=== PATIENT | male | born 1965 | race Caucasian/White ===

== ENCOUNTER 2017-03-19 05:19 | Inpatient (IN) | payer OTHER ==
--- NOTE | 2017-03-14 18:44 | HP ---
Date/Time of Note Date/Time of Note DATE: 03/14/17 TIME: 18:36 Assessment/Plan VTE Prophylaxis VTE Prophylaxis Intervention: SCD's Assessment/Plan Chief Complaint/Hosp Course Preoperative medical consultation prior to elective lumbar spinal surgery for spinal stenosis. At this time I find Mr. Resendiz to be acceptable surgical candidate and concur with your plans to proceed with surgery. He is at average surgical risk as compared to his age-matched peers. Using the modified Barbosa's criteria he is a intermediate risk. He should do well using all standard and routine anesthesia precautions. I concur with proceeding. Respectfully yours Problems: (1) Lumbar spinal stenosis Status: Chronic Comment: As above cleared to proceed with surgery HPI/ROS Admit Date/Time Admit Date/Time March 19, 2017 Hx of Present Illness 51-year-old gentleman being brought in electively by Dr. Katharina Burnham for surgery specifically lumbar decompression and possible discectomy L2 through S1 due to a diagnosis of L2 through S1 lumbar spinal stenosis. She has failed all conservative attempts at treatment. ROS Constitutional: no complaints Eyes: no complaints ENT: other (Left ear tinnitus otherwise negative) Respiratory: no complaints Cardiovascular: no complaints (Can climb 4 flights of stairs) Gastrointestinal: no complaints Genitourinary: no complaints Musculoskeletal: back pain, other (With sciatica) Skin: no complaints Neurologic: other (Lower extremity sciatica) Endocrine: no complaints Lymphatic: no complaints Psychological: nl mood/affect, no complaints Immunologic: no complaints PMH/Family/Social Past Medical History Lumbar spinal stenosis; usual childhood diseases; Medications: [place] as needed Past Surgical History Past Surgical Hx: no surgical history Family History Significant Family History: heart disease, diabetes, hypertension, other ( Stroke negative for anesthesia reactions) Social History [facility]. Two-year college degree without experience. Professional brown. He is single lives alone except for his pet dog he is very active Alcohol Use: heavy Smoking Status: Current every day smoker Drug Use: none Exam/Review of Systems Vital Signs Vitals Height 5 feet 10 inches; weight 218 pounds; blood pressure 134/70; pulse 64; temperature 97.9; respiratory rate 16 Exam Exam Labs have been sent separately. Random blood sugar 138 otherwise chemistry panel normal. White count 6.4 hemoglobin 15.3 hematocrit 47.1 platelet count 170 urinalysis without note except for trace proteinuria pro time 12.6 with an INR of 1.15 PTT is 26 seconds EKG is sinus rhythm rhythm at 58 with intervals 0.1 6.10.40 and axis of -15 normal morphology chest x-ray unremarkable Constitutional: alert, oriented, well developed Psych: nl mood/affect, no complaints Head: atraumatic, normocephalic Eyes: EOMI, nl conjunctiva, nl lids, nl sclera ENMT: mucosa pink and moist, nl external ears & nose, nl lips & teeth, nl nasal mucosa & septum Neck: non-tender, supple Respiratory: clear to auscultation, normal air movement Cardiovascular: nl pulses, regular rate and rhythm Gastrointestinal: nl liver, spleen, non-tender, soft Musculoskeletal: nl extremities to inspection, nl gait and stance (Antalgic gait) Extremities: normal pulses Neurological: BULB FILLER II-XII intact, nl mental status, nl speech Skin: nl turgor, rash or lesions Lymph: nl lymph nodes Copies To: CC: KENENDI HANKS MD, JOSHUA A MD Mar 14, 2017 18:44
[2017-03-18 09:57] VITALS: BMI 29.2
[2017-03-19] VITALS (27 sets, daily range): BP systolic 111–151; BP diastolic 58–90; PULSE 61–88; RESP 16–20; Ht 180.3 cm; Wt 97.5 kg
[~2017-03-19] VITALS: Ht 180.3 cm; Wt 97.5 kg
[2017-03-19] MEDS ORDERED: SURGIFOAM POWDER 1 GM KIT ONE ×2 (06:54→09:41)
[2017-03-19] MEDS ORDERED: HEPARIN 1000 UNITS/ML 10 ML INJ ONE (06:55)
[2017-03-19] MEDS ORDERED: CEFAZOLIN 1 GM INJ ONE ×2 (06:55→07:06)
[2017-03-19] MEDS ORDERED: BUPIVACAINE 0.5%/EPI (SDV) 10 ML INJ ONE (06:55)
[2017-03-19] MEDS ORDERED: THROMBIN 5000 UNIT VIAL ONE (06:55)
[2017-03-19] MEDS ORDERED: CA CHLORIDE 10% 10 ML SYRINGE ONE (06:55)
--- NOTE | 2017-03-19 06:57 | HPN ---
Date/Time of Note Date/Time of Note DATE: 03/19/17 TIME: 06:57 Interval H&P Admission Note Pt. seen H&P reviewed: No system changes BENJAMIN CEDILLO PA-C Mar 19, 2017 06:57
[2017-03-19] MEDS ORDERED: LACTATED RINGER'S 1,000 ML IV* ONE (07:00)
[2017-03-19] MEDS ORDERED: CEFAZOLIN 2 GM/50 ML (PMX) 50 ML IVPB SCH (07:00)
[2017-03-19] MEDS ORDERED: NEOSTIGMINE 3 MG/3 ML SYRINGE ONE (07:06)
[2017-03-19] MEDS ORDERED: PROPOFOL 20 ML ONE (07:06)
[2017-03-19] MEDS ORDERED: GLYCOPYRROLATE 0.4 MG INJ ONE (07:06)
[2017-03-19] MEDS ORDERED: MIDAZOLAM 1 MG/ML 2 ML INJ ONE (07:06)
[2017-03-19] MEDS ORDERED: FENTAnyl 50 MCG/ML VIAL ONE ×2 (07:06→10:26)
[2017-03-19] MEDS ORDERED: ROCURONIUM 50 MG INJ ONE (07:06)
[2017-03-19] MEDS ORDERED: DEXAMETHASONE 4 MG/ML 1 ML INJ ONE (07:07)
[2017-03-19] MEDS ORDERED: ONDANSETRON 4 MG INJ ONE (07:07)
[2017-03-19] MEDS ORDERED: hydrALAzine 20 MG INJ ONE (08:10)
[2017-03-19] MEDS ORDERED: ALBUTEROL 0.083% (NEB) 2.5 MG/3 ML AMP HHN PRN ×2 (08:30)
[2017-03-19] MEDS ORDERED: MIDAZOLAM 1 MG/ML 2 ML INJ IV PRN ×2 (08:30)
[2017-03-19] MEDS ORDERED: OXYCODONE/ACETAMINOPHEN (5/325) TAB PO PRN ×4 (08:30)
[2017-03-19] MEDS ORDERED: LABETALOL HCL 20MG INJ IV PRN ×2 (08:30)
[2017-03-19] MEDS ORDERED: ONDANSETRON 4 MG INJ IV PRN ×3 (08:30→09:00)
[2017-03-19] MEDS ORDERED: DIPHENHYDRAMINE 50 MG INJ IV PRN ×3 (08:30→09:00)
[2017-03-19] MEDS ORDERED: hydrALAzine 20 MG INJ IV PRN ×2 (08:30)
[2017-03-19] MEDS ORDERED: FENTAnyl 50 MCG/ML VIAL IV PRN ×6 (08:30)
[2017-03-19] MEDS ORDERED: TRIMETHOBENZAMIDE 100 MG/ML VIAL IM PRN ×2 (08:30)
[2017-03-19] MEDS ORDERED: IPRATROPIUM (NEB) 0.5 MG/2.5 ML AMP HHN PRN ×2 (08:30)
[2017-03-19] MEDS ORDERED: EPHEDrine SULFATE 50 MG/5 ML SYG IV PRN ×2 (08:30)
[2017-03-19] MEDS ORDERED: HYDROmorphONE (0.2 MG/ML) 10ML SYG IV PRN ×6 (08:30)
[2017-03-19] MEDS ORDERED: MEPERIDINE 25 MG INJ IV PRN ×2 (08:30)
[2017-03-19] MEDS ORDERED: BUPIVACAINE 0.5%/EPI (SDV) 10 ML INJ INJ ONE (08:42)
[2017-03-19] MEDS ORDERED: CEFAZOLIN 1 GM INJ ZFS ONE (08:43)
[2017-03-19] MEDS ORDERED: THROMBIN 5000 UNIT VIAL TOP ONE (08:44)
[2017-03-19] MEDS ORDERED: CA CHLORIDE (GM) 10% 10 ML INJ INJ ONE (08:44)
[2017-03-19] MEDS ORDERED: SURGIFOAM POWDER 1 GM KIT MM ONE (08:45)
[2017-03-19] MEDS ORDERED: HEPARIN 1000 UNITS/ML 10 ML INJ IRR ONE (08:45)
[2017-03-19] MEDS ORDERED: NALOXONE (0.4 MG/ML) INJ IV PRN (09:00)
[2017-03-19] MEDS ORDERED: HYDROmorphONE 1 MG/ML SYG IV PRN (09:00)
[2017-03-19] MEDS ORDERED: ZOLPIDEM 5 MG TAB PO PRN (09:00)
[2017-03-19] MEDS: D5W-0.45 NACL + KCL 20 MEQ 1,000 ML IV SCH ×2 (09:00→15:51)
[2017-03-19] MEDS ORDERED: AL HYDROX/MG HYDROX/SIMETH 30 ML CUP PO PRN (10:00)
[2017-03-19] MEDS ORDERED: ACETAMINOPHEN 325 MG TAB PO PRN (10:00)
[2017-03-19] MEDS ORDERED: BISACODYL 10 MG SUPP PR PRN (10:00)
[2017-03-19] MEDS ORDERED: BUPIVACAINE 0.25% (MPF) 10 ML 10 ML VIAL ONE (10:26)
[2017-03-19] MEDS ORDERED: SUGAMMADEX SODIUM 200 MG/2 ML VIAL IV ONE (10:47)
[2017-03-19] MEDS ORDERED: CEFAZOLIN 1 GM/50 ML (PMX) 50 ML IVPB SCH (11:00)
--- NOTE | 2017-03-19 11:01 | SIPON ---
Date/Time of Note Date/Time of Note DATE: 03/19/17 TIME: 10:59 Operative Report Preoperative Diagnosis Spinal stenosis Postoperative Diagnosis Spinal stenosis Operation/Procedure Performed Lumbar decompression L2-S1 Surgeon see signature line field technical assistant Cortney so Anesthesia: general Estimated blood loss: 250 - 300 ml's Transfusion Required none Specimen Spinous process Grafts/Implants none Complications none KENNEDI HANKS MD Mar 19, 2017 11:01
[2017-03-19] MEDS: HYDROmorphONE 0.2 MG/ML PCA IV SCH (11:12)
--- NOTE | 2017-03-19 12:52 | RADRPT ---
PROCEDURE: Intraoperative fluoroscopy. CLINICAL INDICATION: Intraoperative fluoroscopy. COMPARISON: None relevant listed. TECHNIQUE: Intraoperative fluoroscopy of the lumbar spine was performed. Fluoroscopy time: 12.2 seconds # Series / Images: 6 FINDINGS: Intraoperative fluoroscopy was provided for surgical planning and support purposes. Expected changes related to L2-S1 posterior decompression. Alignment is anatomic. Mild L4-L5 and L5-S1 disc space na rrowing. IMPRESSION: 1. Intraoperative fluoroscopy was provided for surgical planning and support purposes. 2. Mild degenerative changes of the lumbar spine. RPTAT: [facility] Physician Dulce Date Time Electronically viewed and signed by Physician Dulce on 03/19/2017 12:51 LG/
--- NOTE | 2017-03-19 13:46 | PN ---
Date/Time of Note Date/Time of Note DATE: 03/19/17 TIME: 13:44 Assessment/Plan VTE Prophylaxis VTE Prophylaxis Intervention: SCD's Lines/Catheters IV Catheter Type (from Nrsg): Peripheral IV Assessment/Plan Chief Complaint/Hosp Course Preoperative medical consultation prior to elective lumbar spinal surgery for spinal stenosis. At this time I find Mr. Resendiz to be acceptable surgical candidate and concur with your plans to proceed with surgery. He is at average surgical risk as compared to his age-matched peers. Using the modified Barbosa's criteria he is a intermediate risk. He should do well using all standard and routine anesthesia precautions. I concur with proceeding. Respectfully yours Problems: (1) Status post lumbar laminectomy Onset Date: ~ 03/19/2017 Status: Acute Comment: Patient is immediately postop. He appears to be doing well. He is in fact moving his extremities right greater than left and is still immediately post anesthesia. We will continue to observe him and start him on appropriate physical therapy and rehabilitative therapy (2) Lumbar spinal stenosis Status: Chronic Comment: He is properly expect reasonable outcome although will watch carefully. Subjective 24 Hr Interval Summary Free Text/Dictation Resting in bed awake and alert postoperatively. Feels is difficult to take a deep breath but has no shortness of breath Constitutional: no complaints Eyes: no complaints ENT: no complaints Respiratory: no complaints Cardiovascular: no complaints Gastrointestinal: no complaints Genitourinary: no complaints Musculoskeletal: back pain (Normal back pain) Exam/Review of Systems Vital Signs Vitals Vital Signs Date Time Temp Pulse Resp B/P Pulse Ox O2 Delivery O2 Flow Rate FiO2 03/19/17 12:10 82 17 146/90 97 Nasal Cannula 2.0 03/19/17 11:10 98.0 Exam Constitutional: alert, oriented Respiratory: clear to auscultation, normal air movement Cardiovascular: nl pulses, regular rate and rhythm Gastrointestinal: nl liver, spleen, non-tender, soft Medications Medications Current Medications Potassium Chloride/Dextrose/ Sod Cl (D5-1/2ns + KCl 20 Meq) 1,000 ml @ 100 mls/ hr Q10H IV ; Start 03/19/17 at 09:00 Acetaminophen/ Hydrocodone Bitart ([place] ()) 1 tab Q4H PRN PO PAIN LEVEL 1-5; Start 03/21/17 at 10:00 Acetaminophen/ Hydrocodone Bitart ([place] (10/325)) 2 tab Q4H PRN PO PAIN LEVEL 6-10; Start 03/21/17 at 10:00 Hydromorphone HCl 0.2 mg 0.2 mg Q1H PRN IV BREAKTHROUGH PAIN; Start 03/19/17 at 09:00 Cefazolin Sodium (Ancef 1 Gm/50 ml (Pmx)) 50 ml @ 100 mls/hr Q8H IVPB ; Start 03/19/17 at 11:00; Stop 03/20/17 at 03:29 Ondansetron HCl (Zofran Inj) 4 mg Q6H PRN IV NAUSEA AND/OR VOMITING; Start at 09:00 Bisacodyl (Dulcolax Supp) 10 mg DAILY PRN MD CONSTIPATION; Start 03/19/17 at 10 :00 Docusate Sodium (Colace) 100 mg BID PO ; Start 03/19/17 at 21:00 Al Hydrox/Mg Hydrox/Simethicone (Mag-Al Plus) 15 ml Q6H PRN PO CONSTIPATION/ DYSPEPSIA; Start 03/19/17 at 10:00 Acetaminophen (Tylenol Tab) 650 mg Q4H PRN PO GANT OR TEMP GREATER THAN 101.3F; Start 03/19/17 at 10:00 Cyclobenzaprine HCl (Flexeril) 10 mg TID PRN PO MUSCLE SPASMS; Start 03/19/17 at 09:00 Phenol (Cepastat Lozenge) 1 lozenge PRN PRN MT SORE THROAT; Start 03/19/17 at 09:00 Diphenhydramine HCl (Benadryl) 25 mg Q6H PRN IV ITCHING; Start 03/19/17 at 09: 00 Naloxone HCl (Narcan) 0.2 mg Q2M PRN IV RR 8 BREATHS/MIN OR LESS; Start at 09:00 Hydromorphone HCl (Dilaudid CUT FILER) CUT FILER to be started in PACU Q4PCA IV Last administered on 03/19/17t 11:12; Admin Dose 6 MG; Start 03/19/17 at 09:00; Status Future Hold Miscellaneous Information 1. Hold CUT FILER at 1,000... CUT FILER IV ; Start 03/19/17 at 07: 00 Acetaminophen/ Hydrocodone Bitart ([place] ()) 2 tab ONCE@0930 PO ; Start at 09:30; Stop 03/21/17 at 12:00 CECI PARRISH MD Mar 19, 2017 13:46
[2017-03-19] MEDS: CEFAZOLIN 1 GM/50 ML (PMX) 50 ML IVPB SCH ×2 (15:50→20:32)
[2017-03-19] MEDS: DOCUSATE SODIUM 100 MG CAP PO SCH (20:32)
[2017-03-20] MEDS: HYDROmorphONE 0.2 MG/ML PCA IV SCH ×2 (00:43→12:43)
[2017-03-20 04:25] VITALS: BP 122/76; PULSE 63; RESP 18
[2017-03-20] MEDS: CEPASTAT LOZENGE MT PRN ×2 (04:48→19:58)
[2017-03-20] MEDS: D5W-0.45 NACL + KCL 20 MEQ 1,000 ML IV SCH ×2 (04:48→11:23)
[2017-03-20] MEDS: CEFAZOLIN 1 GM/50 ML (PMX) 50 ML IVPB SCH (04:49)
[2017-03-20 05:47] LABS: BASOPHILS % 0.2 % (0.0-2.0); EOSINOPHILS # 0.1 10^3/ul (0.0-0.5); EOSINOPHILS % 0.4 % (0.0-7.0); HEMATOCRIT 35.1 % (42.0-52.0); HEMOGLOBIN 12.2 g/dl (14.0-18.0); LYMPHOCYTES # 1.5 10^3/ul (0.8-2.9); LYMPHOCYTES % 11.7 % (15.0-51.0); MEAN CORPUSCULAR HGB CONC 34.8 g/dl (32.0-37.0); MEAN CORPUSCULAR VOLUME 92.1 fl (82.0-101.0); MEAN PLATELET VOLUME 10.5 fl (7.4-10.4); MONOCYTE # 0.8 10^3/ul (0.3-0.9); MONOCYTES % 6.2 % (0.0-11.0); NEUTROPHIL # 10.1 10^3/ul (1.6-7.5); NEUTROPHILS % 80.5 % (39.0-77.0); PLATELET COUNT 156 10^3/UL (140-415); RED BLOOD COUNT 3.81 10^6/ul (4.70-6.10); RED CELL DISTRIBUTION WIDTH 12.2 % (11.5-14.5); WHITE BLOOD COUNT 12.5 10^3/ul (4.8-10.8)
[2017-03-20 06:21] LABS: CALCIUM 8.3 mg/dl (8.4-10.2); CREATININE 0.96 mg/dl (0.61-1.24); POTASSIUM 3.7 mmol/L (3.5-5.1)
[2017-03-20 07:43] VITALS: BP 135/77; RESP 18
--- NOTE | 2017-03-20 07:43 | OPR ---
DATE OF OPERATION: 03/19/2017 PREOPERATIVE DIAGNOSES: 1. Degenerative scoliosis. 2. Radiculopathy. 3. L2-3, L3-4, L4-5, L5-S1 stenosis. POSTOPERATIVE DIAGNOSES: 1. Degenerative scoliosis. 2. Radiculopathy. 3. L2-3, L3-4, L4-5, L5-S1 stenosis. OPERATION PERFORMED: 1. Central decompressive laminectomy at L2-3, L3-4, L4-5 and L5- S1 with decompression of L2, L3, L4, L5, S1 nerve roots bilaterally. 2. Use of C-arm flash with interpretation without radiologist present. 3. Intraoperative neuro monitoring (3 hours). SURGEON: Pacheco Hay MD CLOTH PACKER: Cortney Goodwin PA-C NEED FOR RESPIRATORY THERAPIST: assistant county attorney was required to retract neurovascular elements. ESTIMATED BLOOD LOSS: 300 mL. DRAINS: One. SPECIMENS: Spinous processes. COMPLICATIONS: None. ANESTHESIOLOGIST: Kirit Aguayo MD ANESTHESIA: General. INDICATION FOR PROCEDURE: This is a 51-year-old gentleman with lumbar radiculopathy and a footdrop in the setting of degenerative scoliosis and stenosis. He has failed nonoperative measures. Therefore, I recommended proceeding with the above mentioned surgery. Preoperatively, discussed risks, benefits, alternatives. He understood and wished to proceed. DESCRIPTION OF PROCEDURE IN DETAIL: The patient was identified in the holding area, given Ancef antibiotics in the operating room where he was successfully placed under general anesthesia. Neuro monitors were placed and sequential compressive devices were applied. Silva catheter was introduced. Neuro monitor was utilized during the procedure for 3 hours to include SSEP, MEP, and EMG. This was performed by [email or web address]. Start time was 8 a.m. Closure time was 11 a.m. The patient was placed in the prone position on [place] frame. All bony prominences were padded. The back was then prepped and draped in usual sterile fashion. The incision site was injected with Marcaine and epinephrine. Incision was then made from L2 to the sacrum. Incision was taken down to the dorsal fascia which was incised with Bovie cautery. I then subperiosteally dissected the longus colli musculature. Kerrisons were then placed in the lamina. Repeat lateral film was obtained to confirm the correct levels. Once this was confirmed, I performed a central decompressive laminectomy at L2-3, L3-4, L4-5, L5-S1. I decompressed the central canal. I decompressed the lateral recess. I decompressed the L2, L3, L4, L5 and S1 nerve roots bilaterally through the intraspinal course and out to the foramen to alleviate the stenosis. Once this was done, the nerve signals significantly improved as outlined below. Once this was done, I irrigated the wound. Hemostasis achieved with bipolar cautery and Surgifoam. Epidural catheter was passed through which I injected 100 mcg of fentanyl, mixed with 2 mL of Marcaine 0.25 percent and the catheter was pulled. Platelet poor plasma mixed with thrombin was injected over the dura for hemostatic purposes. I then placed a subfascial drain and closed the fascia with a 1 Stratafix suture. I then closed subcutaneous tissue with 2-0 Vicryl stitch. 4-0 Monocryl closure was then performed. Dermabond and sterile dressing was then applied. The patient was then awakened from anesthesia and taken to recovery in stable condition. Lap, sponge, and instrument counts correct x2. There were no apparent complications during the procedure. The patient admitted to [facility] for routine postoperative care to include pain control, NV checks, antibiotics, and physical therapy. OPERATIVE FINDINGS AT SURGERY: The patient had severe stenosis due to degenerative scoliosis and facet and ligamentum hypertrophy. At the start of the case, L2 amplitude down 20 percent bilaterally, L3 amplitude down 50 percent bilaterally, L4 amplitude down 40 percent on the left and 60 percent on the right, L5 amplitude down 80 percent on the left and 70 percent on the right, and S1 amplitude down 40 percent bilaterally. L2, L3, L4 nerve roots improved. L5 signal on the left was down 40 percent and right side returned to normal. S1 signal bilaterally was 10 percent down at the end of the case. Dictated By: Pacheco Hay MD /saniya/chace /Document#: [id number] PACHECO
[2017-03-20] MEDS: DOCUSATE SODIUM 100 MG CAP PO SCH ×2 (08:58→19:58)
[2017-03-20] MEDS: CYCLOBENZAPRINE 10 MG TAB PO PRN (11:20)
--- NOTE | 2017-03-20 12:03 | PN ---
Date/Time of Note Date/Time of Note DATE: 03/20/17 TIME: 12:01 Assessment/Plan Lines/Catheters IV Catheter Type (from Nrsg): Peripheral IV Silva in Place (from Nrsg): Yes Assessment/Plan Assessment/Plan doing well pod 1 right leg partial foot drop slightly improved from preop continue post op care Subjective 24 Hr Interval Summary improved leg pain Exam/Review of Systems Vital Signs Vitals Vital Signs Date Time Temp Pulse Resp B/P Pulse Ox O2 Delivery O2 Flow Rate FiO2 03/20/17 11:24 20 03/20/17 07:43 97.4 66 135/77 100 03/20/17 04:25 Nasal Cannula 2.0 Intake and Output 03/19/17 03/19/17 03/20/17 15:00 23:00 07:00 Intake Total 2800 ml 740 ml 1450 ml Output Total 860 ml 470 ml 2000 ml Balance 1940 ml 270 ml -550 ml Exam Free Text/Dictation right leg partial foot drop Results Result Diagram: 03/20/17 0453 03/20/17 0453 KENNEDI HANKS MD Mar 20, 2017 12:03
[2017-03-20 14:09] VITALS: BP 132/65; RESP 18
--- NOTE | 2017-03-20 15:14 | PN ---
Date/Time of Note Date/Time of Note DATE: 03/20/17 TIME: 15:12 Assessment/Plan VTE Prophylaxis VTE Prophylaxis Intervention: SCD's Lines/Catheters IV Catheter Type (from Nrs): Peripheral IV Urinary Cath still in place: Yes Reason Cath still needed: urinary retention Assessment/Plan Chief Complaint/Hosp Course Preoperative medical consultation prior to elective lumbar spinal surgery for spinal stenosis. At this time I find Mr. Resendiz to be acceptable surgical candidate and concur with your plans to proceed with surgery. He is at average surgical risk as compared to his age-matched peers. Using the modified Barbosa's criteria he is a intermediate risk. He should do well using all standard and routine anesthesia precautions. I concur with proceeding. Respectfully yours Problems: (1) Status post lumbar laminectomy Onset Date: ~ 03/19/2017 Status: Acute Comment: He is progressing with physical therapy. He has developed an intractable hiccups which may be a sinus some GI tract irritation. I will treat his GI tract I am also getting given Thorazine 25 every 8 hours as needed for the hiccups which will bring that to an end. Subjective 24 Hr Interval Summary Free Text/Dictation He complains of having hiccups for the last 8 hours. Constitutional: no complaints Respiratory: no complaints Cardiovascular: no complaints Gastrointestinal: no complaints Exam/Review of Systems Vital Signs Vitals Vital Signs Date Time Temp Pulse Resp B/P Pulse Ox O2 Delivery O2 Flow Rate FiO2 03/20/17 14:09 97.9 70 18 132/65 98 03/20/17 04:25 Nasal Cannula 2.0 Intake and Output 03/19/17 03/19/17 03/20/17 15:00 23:00 07:00 Intake Total 2800 ml 740 ml 1450 ml Output Total 860 ml 470 ml 2000 ml Balance 1940 ml 270 ml -550 ml Exam Constitutional: alert, oriented Neck: non-tender, supple Respiratory: clear to auscultation, normal air movement Cardiovascular: nl pulses, regular rate and rhythm Results Result Diagram: 03/20/17 0453 03/20/17 0453 Results 24 hrs Laboratory Tests Test 03/20/17 04:53 White Blood Count 12.5 H Red Blood Count 3.81 L Hemoglobin 12.2 L Hematocrit 35.1 L Mean Corpuscular Volume 92.1 Mean Corpuscular Hemoglobin 32.0 Mean Corpuscular Hemoglobin Concent 34.8 Red Cell Distribution Width 12.2 Platelet Count 156 Mean Platelet Volume 10.5 H Neutrophils % 80.5 H Lymphocytes % 11.7 L Monocytes % 6.2 Eosinophils % 0.4 Basophils % 0.2 Nucleated Red Blood Cells % 0.0 Neutrophils # 10.1 H Lymphocytes # 1.5 Monocytes # 0.8 Eosinophils # 0.1 Basophils # 0.0 Nucleated Red Blood Cells # 0.0 Sodium Level 137 Potassium Level 3.7 Chloride Level 103 Carbon Dioxide Level 27 Anion Gap 11 Blood Urea Nitrogen 19 Creatinine 0.96 Glucose Level 145 Calcium Level 8.3 L Magnesium Level 2.0 Medications Medications Current Medications Potassium Chloride/Dextrose/ Sod Cl (D5-1/2ns + KCl 20 Meq) 1,000 ml @ 100 mls/ hr Q10H IV Last administered on 03/20/17 11:23; Admin Dose 100 MLS/HR; Start 03/19/17 at 09:00 Acetaminophen/ Hydrocodone Bitart ([place] (10/325)) 1 tab Q4H PRN PO PAIN LEVEL 1-5; Start 03/21/17 at 10:00 Acetaminophen/ Hydrocodone Bitart ([place] (10/325)) 2 tab Q4H PRN PO PAIN LEVEL 6-10; Start 03/21/17 at 10:00 Hydromorphone HCl (Dilaudid) 0.2 mg Q1H PRN IV BREAKTHROUGH PAIN; Start at 09:00 Ondansetron HCl (Zofran Inj) 4 mg Q6H PRN IV NAUSEA AND/OR VOMITING Last administered on 03/19/17 15:50; Admin Dose 4 MG; Start 03/19/17 at 09:00 Bisacodyl (Dulcolax Supp) 10 mg DAILY PRN IN CONSTIPATION; Start 03/19/17 at 10 :00 Docusate Sodium (Colace) 100 mg BID PO Last administered on 03/20/17 08:58; Admin Dose 100 MG; Start 03/19/17 at 21:00 Al Hydrox/Mg Hydrox/Simethicone (Mag-Al Plus) 15 ml Q6H PRN PO CONSTIPATION/ DYSPEPSIA; Start 03/19/17 at 10:00 Acetaminophen (Tylenol Tab) 650 mg Q4H PRN PO GANT OR TEMP GREATER THAN 101.3F; Start 03/19/17 at 10:00 Cyclobenzaprine HCl (Flexeril) 10 mg TID PRN PO MUSCLE SPASMS Last administered on 03/20/17 11:20; Admin Dose 10 MG; Start 03/19/17 at 09:00 Phenol (Cepastat Lozenge) 1 lozenge PRN PRN MT SORE THROAT Last administered on 03/20/17 04:48; Admin Dose 1 LOZENGE; Start 03/19/17 at 09:00 Diphenhydramine HCl (Benadryl) 25 mg Q6H PRN IV ITCHING; Start 03/19/17 at 09: 00 Naloxone HCl (Narcan) 0.2 mg Q2M PRN IV RR 8 BREATHS/MIN OR LESS; Start at 09:00 Miscellaneous Information 1. Hold IMAGING ACCOUNT MANAGER at 1,000... IMAGING ACCOUNT MANAGER IV ; Start 03/19/17 at 07: 00 Acetaminophen/ Hydrocodone Bitart ([place] (10/325)) 2 tab ONCE@0930 PO ; Start at 09:30; Stop 03/21/17 at 12:00 Hydromorphone HCl (Dilaudid IMAGING ACCOUNT MANAGER) IMAGING ACCOUNT MANAGER to be started in PACU Q4PCA IV Last administered on 03/20/17 12:43; Admin Dose 6 MG; Start 03/20/17 at 12:30 CECI PARRISH MD Mar 20, 2017 15:14
[2017-03-20] MEDS: CHLORPROMAZINE 25 MG TAB PO PRN (15:29)
[2017-03-20 19:43] VITALS: BP 135/69; RESP 20
[2017-03-20 22:08] VITALS: BP 122/63; PULSE 117; RESP 18
[2017-03-21 02:20] VITALS: BP 125/67; RESP 20
[2017-03-21] MEDS: D5W-0.45 NACL + KCL 20 MEQ 1,000 ML IV SCH ×3 (02:27→21:00)
[2017-03-21 02:33] LABS: ADD UMIC YES; UR ASCORBIC ACID NEGATIVE (NEGATIVE); UR BILIRUBIN (Dip) NEGATIVE (NEGATIVE); UR BLOOD (Dip) 2+ mg/dL (NEGATIVE); UR CLARITY CLEAR (CLEAR); UR COLOR STRAW (YELLOW); UR GLUCOSE (Dip) NEGATIVE (NEGATIVE); UR KETONES (Dip) NEGATIVE (NEGATIVE); UR LEUKOCYTE ESTERASE (Dip) NEGATIVE Leu/ul (NEGATIVE); UR NITRITE (Dip) NEGATIVE (NEGATIVE); UR RBC 2 /HPF (0-5); UR SPECIFIC GRAVITY (Dip) 1.006 (1.003-1.030); UR TOTAL PROTEIN (Dip) NEGATIVE (NEGATIVE); UR UROBILINOGEN (Dip) NEGATIVE (NEGATIVE)
[2017-03-21] MEDS: HYDROmorphONE 0.2 MG/ML PCA IV SCH (05:29)
[2017-03-21 05:44] LABS: BASOPHIL # 0.1 10^3/ul (0.0-0.1); BASOPHILS % 0.5 % (0.0-2.0); EOSINOPHILS # 0.2 10^3/ul (0.0-0.5); EOSINOPHILS % 1.4 % (0.0-7.0); HEMATOCRIT 35.2 % (42.0-52.0); HEMOGLOBIN 12.1 g/dl (14.0-18.0); LYMPHOCYTES # 2.5 10^3/ul (0.8-2.9); LYMPHOCYTES % 21.5 % (15.0-51.0); MEAN CORPUSCULAR HEMOGLOBIN 31.8 pg (29.0-33.0); MEAN CORPUSCULAR HGB CONC 34.4 g/dl (32.0-37.0); MEAN CORPUSCULAR VOLUME 92.4 fl (82.0-101.0); MEAN PLATELET VOLUME 10.2 fl (7.4-10.4); MONOCYTE # 1.3 10^3/ul (0.3-0.9); MONOCYTES % 11.4 % (0.0-11.0); NEUTROPHIL # 7.5 10^3/ul (1.6-7.5); NEUTROPHILS % 64.7 % (39.0-77.0); PLATELET COUNT 133 10^3/UL (140-415); RED BLOOD COUNT 3.81 10^6/ul (4.70-6.10); RED CELL DISTRIBUTION WIDTH 12.2 % (11.5-14.5); WHITE BLOOD COUNT 11.6 10^3/ul (4.8-10.8)
--- NOTE | 2017-03-21 05:58 | RADRPT ---
PROCEDURE: XR Chest. CLINICAL INDICATION: Fever TECHNIQUE: A single AP view of the chest was obtained. COMPARISON: None available FINDINGS: Lung volumes are low with compressive changes and crowding of the central pulmonary vascular marking s with bibasilar atelectasis . No focal airspace opacity, pleural effusion or pneumothorax is seen. The cardiomediastinal silhouette is within normal limits for size. The osseous structures are unre markable. IMPRESSION: Low lung volumes with compressive changes and bibasilar atelectasis. RPTAT: HH .Vicky Garcia MD, MD Date Time Electronically viewed and signed by .Vicky Garcia MD, on 03/21/2017 05:57 .G/
[2017-03-21 06:28] VITALS: BP 130/80; PULSE 93; RESP 19
[2017-03-21 06:46] LABS: CALCIUM 8.6 mg/dl (8.4-10.2); CREATININE 1.06 mg/dl (0.61-1.24); MAGNESIUM 2.1 mg/dl (1.7-2.5); POTASSIUM 3.4 mmol/L (3.5-5.1)
[2017-03-21 08:00] VITALS: BP 121/61; RESP 19
[2017-03-21] MEDS: CHLORPROMAZINE 25 MG TAB PO PRN (08:27)
[2017-03-21] MEDS: DOCUSATE SODIUM 100 MG CAP PO SCH ×2 (08:27→20:01)
[2017-03-21] MEDS: CYCLOBENZAPRINE 10 MG TAB PO PRN (08:31)
--- NOTE | 2017-03-21 08:32 | PN ---
Date/Time of Note Date/Time of Note DATE: 03/21/17 TIME: 08:28 Assessment/Plan Lines/Catheters IV Catheter Type (from Nrsg): Peripheral IV Silva in Place (from Nrsg): Yes Assessment/Plan Assessment/Plan POD #2 s/p lumbar decompression currently afebrile ambulate, continue PT encourage IS pain control, will transition to PO medications acute rehab consult requested 03/20, still pending hiccup control per Dr. Zavala Subjective 24 Hr Interval Summary pt c/o hiccups, back pain Exam/Review of Systems Vital Signs Vitals Vital Signs Date Time Temp Pulse Resp B/P Pulse Ox O2 Delivery O2 Flow Rate FiO2 03/21/17 06:28 99.1 93 19 130/80 94 Nasal Cannula 2.0 Intake and Output 03/20/17 03/20/17 03/21/17 14:59 22:59 06:59 Intake Total 950 ml 1310 ml 1375 ml Output Total 1100 ml 1660 ml Balance 950 ml 210 ml -285 ml Exam Free Text/Dictation AOx3 hiccups abdomen soft, non-tender dressing and drain C/D/I drain output 110cc preoperative right TA weakness, slightly improved since surgery CXR shows low lung volumes, atelectasis Results Result Diagram: 03/21/17 0455 03/21/17 0455 BENJAMIN CEDILLO PA-C Mar 21, 2017 08:32
[2017-03-21] MEDS ORDERED: HYDROCODONE/APAP (10/325) TAB PO SCH (09:30)
[2017-03-21] MEDS ORDERED: HYDROCODONE/APAP (10/325) TAB PO PRN ×2 (10:00)
[2017-03-21 10:20] VITALS: BP 128/67; RESP 19
--- NOTE | 2017-03-21 10:35 | PN ---
Date/Time of Note Date/Time of Note DATE: 03/21/17 TIME: 10:28 Assessment/Plan VTE Prophylaxis VTE Prophylaxis Intervention: SCD's Lines/Catheters IV Catheter Type (from Nrs): Peripheral IV Urinary Cath still in place: Yes Reason Cath still needed: urinary retention Assessment/Plan Problems: (1) Fever Status: Acute Comment: Patient had blood cultures and urine culture last night. These are pending. No antibiotics have been started. Chest x-ray indicated atelectasis see below. Possible cause of fever is atelectasis. (2) Atelectasis Status: Acute Comment: Patient not using his incentive spirometer. Have encouraged patient to use incentive spirometer. Have shown patient correct way to use incentive spirometer. Encourage usage 10 times per hour. (3) Aftercare following surgery of the musculoskeletal system Status: Acute Comment: Doing fair on postop day #2. Pain control however is inadequate. Defer to primary team to improve pain control Subjective 24 Hr Interval Summary Constitutional: febrile (Last night) Respiratory: cough (Difficult to clear phlegm. Cough so hard last night he popped a stitch in his back.) Cardiovascular: no complaints Gastrointestinal: no complaints Genitourinary: no complaints Musculoskeletal: back pain (Pain control is inadequate) Neurologic: no complaints Exam/Review of Systems Vital Signs Vitals VS - Last 72 Hours, by Label Date Time Temp Pulse Resp B/P Pulse Ox O2 Delivery O2 Flow Rate FiO2 03/21/17 09:52 99.3 03/21/17 06:28 99.1 93 19 130/80 94 Nasal Cannula 2.0 03/21/17 05:22 19 03/21/17 02:20 98.3 83 20 125/67 96 03/21/17 01:00 18 03/20/17 22:38 Nasal Cannula 2.0 03/20/17 22:08 99.9 117 18 122/63 94 Nasal Cannula 2.0 03/20/17 20:30 19 03/20/17 19:46 100.6 03/20/17 19:43 103.0 124 20 135/69 93 03/20/17 18:21 20 03/20/17 15:00 20 03/20/17 14:09 97.9 70 18 132/65 98 03/20/17 12:23 20 03/20/17 11:24 20 03/20/17 08:15 20 9/20/17 07:43 97.4 66 18 135/77 100 03/20/17 04:26 18 03/20/17 04:25 98.1 63 18 122/76 94 Nasal Cannula 2.0 03/20/17 00:47 18 03/20/17 00:27 18 03/19/17 23:33 98.3 63 18 122/74 96 Nasal Cannula 2.0 03/19/17 21:33 Nasal Cannula 2.0 03/19/17 20:34 98.0 73 20 135/74 96 03/19/17 20:30 18 03/19/17 17:28 2 03/19/17 15:30 70 126/76 03/19/17 15:15 61 135/84 03/19/17 15:00 75 130/79 03/19/17 14:45 62 137/80 03/19/17 14:30 63 129/76 03/19/17 14:20 Nasal Cannula 2.0 03/19/17 14:15 72 132/73 03/19/17 14:00 83 121/79 03/19/17 13:45 80 126/76 03/19/17 13:30 75 139/58 03/19/17 13:15 98.0 66 16 142/64 97 Nasal Cannula 2.0 03/19/17 12:10 82 17 146/90 97 Nasal Cannula 2.0 03/19/17 12:05 84 18 150/80 96 Nasal Cannula 2.0 03/19/17 12:00 82 17 151/86 99 Nasal Cannula 2.0 03/19/17 11:55 82 18 144/86 99 Nasal Cannula 2.0 03/19/17 11:50 86 18 141/81 96 Nasal Cannula 2.0 03/19/17 11:45 88 19 139/84 96 Nasal Cannula 2.0 03/19/17 11:40 88 16 148/72 96 Nasal Cannula 2.0 03/19/17 11:35 86 19 144/84 98 Nasal Cannula 2.0 03/19/17 11:30 86 19 144/67 96 Nasal Cannula 2.0 03/19/17 11:25 88 16 140/76 97 Nasal Cannula 2.0 03/19/17 11:20 84 16 148/73 95 Nasal Cannula 2.0 03/19/17 11:15 84 18 118/71 94 Nasal Cannula 2.0 03/19/17 11:10 98.0 03/19/17 11:10 82 17 111/65 96 Nasal Cannula 2.0 03/19/17 11:05 98.4 85 16 118/72 94 Nasal Cannula 2.0 03/19/17 06:11 97.2 66 18 126/81 96 Room Air Vital Signs Date Time Temp Pulse Resp B/P Pulse Ox O2 Delivery O2 Flow Rate FiO2 03/21/17 09:52 99.3 03/21/17 06:28 93 19 130/80 94 Nasal Cannula 2.0 Intake and Output 03/20/17 03/20/17 03/21/17 15:00 23:00 07:00 Intake Total 950 ml 1310 ml 1375 ml Output Total 1100 ml 1660 ml Balance 950 ml 210 ml -285 ml Exam Constitutional: alert, obese, oriented Respiratory: clear to auscultation, normal air movement Cardiovascular: nl pulses, regular rate and rhythm, No edema, No murmurs/extra sounds, No rub Gastrointestinal: bowel sounds, nl liver, spleen, non-tender, soft, No mass, No rebound or guarding Musculoskeletal: nl extremities to inspection Extremities: normal pulses, No clubbing, No cyanosis, No edema Neurological: PORTRAIT PHOTOGRAPHER II-XII intact, nl mental status, nl speech, nl strength Results Result Diagram: 03/21/1745403/21/175 Results 24 hrs Laboratory Tests Test 03/21/17 04:55 White Blood Count 11.6 H Red Blood Count 3.81 L Hemoglobin 12.1 L Hematocrit 35.2 L Mean Corpuscular Volume 92.4 Mean Corpuscular Hemoglobin 31.8 Mean Corpuscular Hemoglobin Concent 34.4 Red Cell Distribution Width 12.2 Platelet Count 133 L Mean Platelet Volume 10.2 Neutrophils % 64.7 Lymphocytes % 21.5 Monocytes % 11.4 H Eosinophils % 1.4 Basophils % 0.5 Nucleated Red Blood Cells % 0.0 Neutrophils # 7.5 Lymphocytes # 2.5 Monocytes # 1.3 H Eosinophils # 0.2 Basophils # 0.1 Nucleated Red Blood Cells # 0.0 Sodium Level 136 Potassium Level 3.4 L Chloride Level 99 Carbon Dioxide Level 31 Anion Gap 9 Blood Urea Nitrogen 17 Creatinine 1.06 Glucose Level 139 Calcium Level 8.6 Magnesium Level 2.1 Medications Medications Current Medications Potassium Chloride/Dextrose/ Sod Cl (D5-1/2ns + KCl 20 Meq) 1,000 ml @ 100 mls/ hr Q10H IV Last administered on 03/21/17 02:27; Admin Dose 100 MLS/HR; Start 03/19/17 at 09:00 Acetaminophen/ Hydrocodone Bitart ([place] (10/325)) 1 tab Q4H PRN PO PAIN LEVEL 1-5; Start 03/21/17 at 10:00 Acetaminophen/ Hydrocodone Bitart ([place] (10/325)) 2 tab Q4H PRN PO PAIN LEVEL 6-10; Start 03/21/17 at 10:00 Hydromorphone HCl (Dilaudid) 0.2 mg Q1H PRN IV BREAKTHROUGH PAIN; Start at 09:00 Ondansetron HCl (Zofran Inj) 4 mg Q6H PRN IV NAUSEA AND/OR VOMITING Last administered on 03/19/17 15:50; Admin Dose 4 MG; Start 03/19/17 at 09:00 Bisacodyl (Dulcolax Supp) 10 mg DAILY PRN [place] CONSTIPATION; Start 03/19/17 at 10 :00 Docusate Sodium (Colace) 100 mg BID PO Last administered on 03/21/17 08:27; Admin Dose 100 MG; Start 03/19/17 at 21:00 Al Hydrox/Mg Hydrox/Simethicone (Mag-Al Plus) 15 ml Q6H PRN PO CONSTIPATION/ DYSPEPSIA; Start 03/19/17 at 10:00 Acetaminophen (Tylenol Tab) 650 mg Q4H PRN PO GANT OR TEMP GREATER THAN 101.3F Last administered on 03/20/17 19:58; Admin Dose 650 MG; Start 03/19/17 at 10:00 Cyclobenzaprine HCl (Flexeril) 10 mg TID PRN PO MUSCLE SPASMS Last administered on 03/21/17 08:31; Admin Dose 10 MG; Start 03/19/17 at 09:00 Phenol (Cepastat Lozenge) 1 lozenge PRN PRN [place] SORE THROAT Last administered on 03/20/17 19:58; Admin Dose 1 LOZENGE; Start 03/19/17 at 09:00 Diphenhydramine HCl (Benadryl) 25 mg Q6H PRN IV ITCHING; Start 03/19/17 at 09: 00 Naloxone HCl (Narcan) 0.2 mg Q2M PRN IV RR 8 BREATHS/MIN OR LESS; Start at 09:00 Miscellaneous Information 1. Hold SAMPLE WEAVER at 1,000... SAMPLE WEAVER IV ; Start 03/19/17 at 07: 00 Acetaminophen/ Hydrocodone Bitart ([place] (10/325)) 2 tab ONCE@0930 PO Last administered on 03/21/17 09:41; Admin Dose 2 TAB; Start 03/21/17 at 09:30; Stop 03/21/17 at 12:00 Hydromorphone HCl (Dilaudid SAMPLE WEAVER) SAMPLE WEAVER to be started in PACU Q4PCA IV Last administered on 03/21/17 05:29; Admin Dose 6 MG; Start 03/20/17 at 12:30 Chlorpromazine (Thorazine) 25 mg Q8H PRN PO HICCUPS Last administered on 08:27; Admin Dose 25 MG; Start 03/20/17 at 16:00 LISSETH GA MD Mar 21, 2017 10:35
[2017-03-21 14:00] VITALS: BP 131/69; RESP 18
[2017-03-21] MEDS ORDERED: OXYCODONE/ACETAMINOPHEN (10/325) TAB PO PRN (14:00)
[2017-03-21] MEDS: OXYCODONE/ACETAMINOPHEN (10/325) TAB PO PRN ×2 (14:50→20:02)
[2017-03-21 20:00] VITALS: BP 137/73; RESP 18
[2017-03-21] MEDS: CEPASTAT LOZENGE MT PRN (21:01)
[2017-03-22] MEDS: CYCLOBENZAPRINE 10 MG TAB PO PRN (00:24)
[2017-03-22 02:17] VITALS: BP 110/65; RESP 22
[2017-03-22] MEDS: OXYCODONE/ACETAMINOPHEN (10/325) TAB PO PRN ×2 (04:15→11:16)
[2017-03-22 06:03] LABS: BASOPHIL # 0.1 10^3/ul (0.0-0.1); BASOPHILS % 0.6 % (0.0-2.0); EOSINOPHILS # 0.4 10^3/ul (0.0-0.5); EOSINOPHILS % 3.5 % (0.0-7.0); HEMATOCRIT 33.4 % (42.0-52.0); HEMOGLOBIN 11.1 g/dl (14.0-18.0); LYMPHOCYTES % 19.7 % (15.0-51.0); MEAN CORPUSCULAR HEMOGLOBIN 30.3 pg (29.0-33.0); MEAN CORPUSCULAR HGB CONC 33.2 g/dl (32.0-37.0); MEAN CORPUSCULAR VOLUME 91.3 fl (82.0-101.0); MEAN PLATELET VOLUME 10.2 fl (7.4-10.4); MONOCYTE # 0.8 10^3/ul (0.3-0.9); MONOCYTES % 8.4 % (0.0-11.0); NEUTROPHIL # 6.8 10^3/ul (1.6-7.5); NEUTROPHILS % 67.5 % (39.0-77.0); PLATELET COUNT 135 10^3/UL (140-415); RED BLOOD COUNT 3.66 10^6/ul (4.70-6.10); RED CELL DISTRIBUTION WIDTH 12.1 % (11.5-14.5)
[2017-03-22 07:00] VITALS: BP 119/76; RESP 18
[2017-03-22] MEDS: D5W-0.45 NACL + KCL 20 MEQ 1,000 ML IV SCH (07:00)
[2017-03-22 07:04] LABS: CALCIUM 8.5 mg/dl (8.4-10.2); CREATININE 0.93 mg/dl (0.61-1.24); MAGNESIUM 1.9 mg/dl (1.7-2.5); POTASSIUM 3.6 mmol/L (3.5-5.1)
--- NOTE | 2017-03-22 08:07 | DS ---
Date/Time of Note Date/Time of Note DATE: 03/22/17 TIME: 08:05 Discharge Summary Admission/Discharge Info Admit Date/Time Mar 19, 2017 at 05:19 Discharge Date/Time 03/22 Discharge Diagnosis s/p lumbar decompression Patient Condition: Good Procedures L2-S1 decompression Hx of Present Illness back and leg pain with weakness in setting of stenosis Hospital Course patient hospital course uncomplicated. foot drop minimally improved compared to pre-op. AFO order. Stable to be transferred to acute rehab. f/u arranged with undersigned. rx given Primary Care Provider Care Physician No Primary Pending Labs Laboratory Tests Test 03/22/17 04:45 White Blood Count 10.010^3/ul (4.8-10.8) Red Blood Count 3.6610^6/ul (4.70-6.10) Hemoglobin 11.1g/dl (14.0-18.0) Hematocrit 33.4% (42.0-52.0) Mean Corpuscular Volume 91.3fl (82.0-101.0) Mean Corpuscular Hemoglobin 30.3pg (29.0-33.0) Mean Corpuscular Hemoglobin Concent 33.2g/dl (32.0-37.0) Red Cell Distribution Width 12.1% (11.5-14.5) Platelet Count 60648^3/UL (140-415) Mean Platelet Volume 10.2fl (7.4-10.4) Neutrophils % 67.5% (39.0-77.0) Lymphocytes % 19.7% (15.0-51.0) Monocytes % 8.4% (0.0-11.0) Eosinophils % 3.5% (0.0-7.0) Basophils % 0.6% (0.0-2.0) Nucleated Red Blood Cells % 0.0/100WBC (0.0-0.0) Neutrophils # 6.810^3/ul (1.6-7.5) Lymphocytes # 2.010^3/ul (0.8-2.9) Monocytes # 0.810^3/ul (0.3-0.9) Eosinophils # 0.410^3/ul (0.0-0.5) Basophils # 0.110^3/ul (0.0-0.1) Nucleated Red Blood Cells # 0.010^3/ul (0.0-0.0) Sodium Level 133mmol/L (135-144) Potassium Level 3.6mmol/L (3.5-5.1) Chloride Level 98mmol/L (97-110) Carbon Dioxide Level 29mmol/L (21-31) Anion Gap 10 (8-16) Blood Urea Nitrogen 14mg/dl (7-20) Creatinine 0.93mg/dl (0.61-1.24) Glucose Level 186mg/dl (70-220) Calcium Level 8.5mg/dl (8.4-10.2) Magnesium Level 1.9mg/dl (1.7-2.5) KENNEDI HANKS MD Mar 22, 2017 08:07
[2017-03-22] MEDS: DOCUSATE SODIUM 100 MG CAP PO SCH (08:54)
== END 2017-03-22 14:19 | DRG 516 ==
LOC: REC 05:19 → MS1 12:24
PROVIDERS: ADMIT Specialist; ATTEND Specialist
PROC: 01NB0ZZ Release Lumbar Nerve, Open Approach (ICD-10-PCS; principal; 2017-03-19 07:00)
DX: M48.06 Spinal stenosis, lumbar region (principal); J98.11 Atelectasis; M41.80 Other forms of scoliosis, site unspecified; M54.16 Radiculopathy, lumbar region; M46.07 Spinal enthesopathy, lumbosacral region; M21.371 Foot drop, right foot; R06.6 Hiccough; R50.9 Fever, unspecified
CPT/HCPCS: 71010; 72110; 80048; 81001; 83735; 85025; 86850; 86900; 86901; 86920; 86999; 87040; 87086; 97116; 97162; 97530; J0360; J0690; J1100; J1170; J1644; J2250; J2405; J2710; J3010; J3480

== ENCOUNTER 2017-03-22 11:46 | Inpatient (IN) | payer OTHER ==
[~2017-03-22] VITALS: Ht 177.8 cm; Wt 97.5 kg
[2017-03-22 14:35] VITALS: BP 143/80; PULSE 86; RESP 18; Ht 177.8 cm; Wt 97.5 kg
[2017-03-22] MEDS ORDERED: HYDROmorphONE 1 MG/ML SYG IV PRN (16:00)
[2017-03-22] MEDS ORDERED: AL HYDROX/MG HYDROX/SIMETH 30 ML CUP PO PRN (16:00)
[2017-03-22] MEDS ORDERED: ACETAMINOPHEN 325 MG TAB PO PRN (16:00)
[2017-03-22] MEDS ORDERED: BISACODYL 10 MG SUPP PR PRN (16:00)
[2017-03-22] MEDS ORDERED: CHLORPROMAZINE 25 MG TAB PO PRN (16:00)
[2017-03-22] MEDS ORDERED: CEPASTAT LOZENGE MT PRN (16:30)
[2017-03-22] MEDS ORDERED: MAGNESIUM HYDROXIDE 30ML CUP PO PRN (16:30)
[2017-03-22] MEDS ORDERED: OXYCODONE/ACETAMINOPHEN (10/325) TAB PO PRN (16:30)
--- NOTE | 2017-03-22 16:47 | HP ---
Date/Time of Note Date/Time of Note DATE: 03/22/17 TIME: 16:36 Assessment/Plan VTE Prophylaxis VTE Prophylaxis Intervention: heparin Assessment/Plan Problems: (1) Status post lumbar laminectomy Onset Date: ~ 03/19/2017 Status: Acute Comment: He is now postop and stable in the acute rehabilitation unit. Continue care as most felt rectal Tamar wreaked HPI/ROS Admit Date/Time Admit Date/Time Mar 22, 2017 at 14:38 Hx of Present Illness This is a 51-year-old gentleman with fairly robust who was admitted to the acute rehabilitation unit debilitated after extensive spinal decompression surgery for lumbar spinal stenosis causing significant distal neurologic effects including foot drop ROS Constitutional: no complaints ENT: no complaints Respiratory: no complaints Cardiovascular: no complaints Gastrointestinal: other Genitourinary: no complaints Musculoskeletal: no complaints Skin: no complaints Neurologic: no complaints Endocrine: no complaints PMH/Family/Social Past Medical History Lumbar spinal stenosis with right leg foot drop Medical History: no pertinent history Past Surgical History Status post lumbar laminectomy Past Surgical Hx: no surgical history Family History Significant Family History: heart disease, diabetes, hypertension Social History Alcohol Use: none Smoking Status: Current every day smoker Drug Use: none Exam/Review of Systems Vital Signs Vitals Vital Signs Date Time Temp Pulse Resp B/P Pulse Ox O2 Delivery O2 Flow Rate FiO2 03/22/17 14:35 98.3 86 18 143/80 94 Room Air Exam Constitutional: alert, oriented Respiratory: clear to auscultation, normal air movement Cardiovascular: nl pulses, regular rate and rhythm Gastrointestinal: nl liver, spleen, non-tender, soft Medications Medications Current Medications Bisacodyl (Dulcolax Supp) 10 mg DAILY PRN [place] CONSTIPATION; Start 03/22/17 at 16 :00 Al Hydrox/Mg Hydrox/Simethicone (Mag-Al Plus) 15 ml Q6H PRN PO CONSTIPATION/ DYSPEPSIA; Start 03/22/17 at 16:00 Acetaminophen (Tylenol Tab) 650 mg Q4H PRN PO GANT OR TEMP GREATER THAN 101.3F; Start 03/22/17 at 16:00 Cyclobenzaprine HCl (Flexeril) 10 mg TID PRN PO MUSCLE SPASMS; Start 03/22/17 at 16:00 Chlorpromazine (Thorazine) 25 mg Q8H PRN PO HICCUPS; Start 03/22/17 at 16:00 Hydromorphone HCl (Dilaudid) 0.2 mg Q1H PRN IV BREAKTHROUGH PAIN; Start at 16:00 Docusate Sodium (Colace) 100 mg BID PO ; Start 03/22/17 at 21:00 Phenol (Cepastat Lozenge) 1 lozenge PRN PRN [place] SORE THROAT; Start 03/22/17 at 16:30 Oxycodone/ Acetaminophen (Endocet (10/ 325)) 1 tab Q4H PRN PO PAIN LEVEL 1-5; Start 03/22/17 at 16:30 Oxycodone/ Acetaminophen (Endocet (10/ 325)) 2 tab Q4H PRN PO PAIN LEVEL 6-10; Start 03/22/17 at 16:30 Senna (Senokot) 1 tab HS PO ; Start 03/22/17 at 21:00 Magnesium Hydroxide (Milk Of Mag) 30 ml BID PRN PO CONSTIPATION; Start at 16:30 Lactulose (Enulose) 20 gm DAILY PRN PO CONSTIPATION; Start 03/22/17 at 16:30 CECI PARRISH MD Mar 22, 2017 16:47
[2017-03-22] MEDS: OXYCODONE/ACETAMINOPHEN (10/325) TAB PO PRN ×2 (16:55→21:18)
[2017-03-22 20:32] VITALS: BP 151/76; RESP 18
[2017-03-22] MEDS ORDERED: SENNA TAB PO SCH (21:00)
[2017-03-22] MEDS: DOCUSATE SODIUM 100 MG CAP PO SCH (21:17)
[2017-03-22] MEDS: CHLORPROMAZINE 25 MG TAB PO SCH ×2 (21:28→21:58)
[2017-03-23 02:00] VITALS: BP 138/70; RESP 18
[2017-03-23] MEDS: OXYCODONE/ACETAMINOPHEN (10/325) TAB PO PRN ×2 (02:07→08:45)
[2017-03-23] MEDS: CHLORPROMAZINE 25 MG TAB PO SCH ×3 (06:00→22:00)
[2017-03-23 07:30] VITALS: BP 123/73; RESP 18
[2017-03-23 08:41] LABS: BASOPHILS % 0.5 % (0.0-2.0); EOSINOPHILS # 0.5 10^3/ul (0.0-0.5); EOSINOPHILS % 5.9 % (0.0-7.0); HEMATOCRIT 36.2 % (42.0-52.0); LYMPHOCYTES # 1.7 10^3/ul (0.8-2.9); LYMPHOCYTES % 22.8 % (15.0-51.0); MEAN CORPUSCULAR HEMOGLOBIN 30.4 pg (29.0-33.0); MEAN CORPUSCULAR HGB CONC 33.1 g/dl (32.0-37.0); MEAN CORPUSCULAR VOLUME 91.6 fl (82.0-101.0); MEAN PLATELET VOLUME 10.4 fl (7.4-10.4); MONOCYTE # 0.5 10^3/ul (0.3-0.9); NEUTROPHIL # 4.8 10^3/ul (1.6-7.5); NEUTROPHILS % 63.1 % (39.0-77.0); PLATELET COUNT 168 10^3/UL (140-415); RED BLOOD COUNT 3.95 10^6/ul (4.70-6.10); WHITE BLOOD COUNT 7.6 10^3/ul (4.8-10.8)
[2017-03-23] MEDS: CYCLOBENZAPRINE 10 MG TAB PO PRN (08:45)
[2017-03-23] MEDS: DOCUSATE SODIUM 100 MG CAP PO SCH ×2 (08:45→20:25)
[2017-03-23 09:00] LABS: ALBUMIN 3.7 g/dl (3.3-4.9); ALBUMIN/GLOBULIN RATIO 1.05; BILIRUBIN,INDIRECT 0.3 mg/dl (0-1.1); BILIRUBIN,TOTAL 0.3 mg/dl (0.2-1.3); CALCIUM 8.9 mg/dl (8.4-10.2); CREATININE 1.04 mg/dl (0.61-1.24); POTASSIUM 3.4 mmol/L (3.5-5.1); TOTAL PROTEIN 7.2 g/dl (6.1-8.1)
[2017-03-23 11:38] LABS: ADD UMIC NO; UR ASCORBIC ACID NEGATIVE (NEGATIVE); UR BILIRUBIN (Dip) NEGATIVE (NEGATIVE); UR BLOOD (Dip) NEGATIVE (NEGATIVE); UR CLARITY CLEAR (CLEAR); UR COLOR YELLOW (YELLOW); UR GLUCOSE (Dip) NEGATIVE (NEGATIVE); UR KETONES (Dip) NEGATIVE (NEGATIVE); UR LEUKOCYTE ESTERASE (Dip) NEGATIVE Leu/ul (NEGATIVE); UR NITRITE (Dip) NEGATIVE (NEGATIVE); UR SPECIFIC GRAVITY (Dip) 1.013 (1.003-1.030); UR TOTAL PROTEIN (Dip) NEGATIVE (NEGATIVE); UR UROBILINOGEN (Dip) NEGATIVE (NEGATIVE)
--- NOTE | 2017-03-23 11:50 | CONS ---
REHABILITATION POST ADMISSION PHYSICIAN EVALUATION DATE OF ADMISSION: 03/22/2017 DATE OF CONSULTATION: 03/23/2017 REHABILITATION IMPAIRMENT CATEGORY: Lumbar sacral stenosis with radiculopathy and foot drop. Status post-decompressive laminectomy. ACTIVE COMORBIDITIES: 1. Acute pain syndrome. 2. Atelectasis. 3. Constipation. 4. Obesity. 5. Impairments in self-care and mobility. HISTORY OF PRESENT ILLNESS: The patient is a 51-year-old gentleman with a history of lumbar radiculopathy with foot drop, with notable pain and weakness who did undergo a decompressive laminectomy on 03/19/2017. Patient's hospital course has been notable for atelectasis requiring supplemental oxygen, significant pain, and constipation. The patient is also noted to have significant impairments in self-care, mobility as compared to baseline and has been cleared to transfer to the rehabilitation unit for comprehensive interdisciplinary rehab care. FUNCTIONAL HISTORY: Prior to recent events, he was independent in self-care tasks and mobility. Currently, he requires moderate assist for self-care and mobility tasks. I have reviewed the preadmission screen and patient's current functional status is consistent with the preadmission screen. SOCIAL HISTORY: Patient lives at home and hopes to return there upon discharge. PAST MEDICAL HISTORY: 1. Lumbar sacral stenosis with radiculopathy and foot drop. 2. Obesity. MEDICATION: 1. He has Flexeril 10 mg orally 3 times daily and as needed. 2. Colace 100 mg orally twice daily. 3. Dilaudid as needed. 4. Tylenol as needed 5. Endocet as needed. 6. Ambien as needed. ALLERGIES: PATIENT WITH NO KNOWN DRUG ALLERGIES. PHYSICAL EXAMINATION: VITAL SIGNS: Patient is currently afebrile with stable vital signs. HEENT: Extraocular motions are intact. Oropharynx clear. NECK: Supple. LUNGS: Clear anteriorly. HEART: S1, S2. ABDOMEN: Soft, nontender. Positive bowel sounds. NEUROLOGICAL: He is awake and alert. He is oriented x3. He can follow simple one-step commands. His cranial nerves are grossly intact. He has good strength in bilateral upper extremity and the left lower extremity. Patient with right lower extremity foot drop. PLAN: Patient has been admitted for comprehensive interdisciplinary acute rehab and is anticipated to tolerate 3 hours of daily therapy in divided doses for at least 5/7 days a week. The treatment plan will include: 1. Physical therapy to focus on bed mobility, transfers and household ambulation with goal have patient reach a standby assist level. 2. Occupational therapy to focus on hygiene, grooming, dressing, bathing and toileting activities with goal of having patient reach standby assist level. 3. Rehabilitation nursing for carry over of therapeutic interventions. The goal of continent to bowel and bladder, and the goal of pain adequately managed on oral medications. Estimated length of stay:10 days. Disposition goal: home Rehabilitation barrier: pain. Intervention for barrier: interdisciplinary approach. I acknowledge I performed a full physical examination on this patient within 24 hours of admission to the rehabilitation unit and believe the patient is a good candidate for comprehensive interdisciplinary rehab care and is anticipated to make reasonable goals in a reasonable period of time as outlined above. Dictated By: Cande Overton MD /saniya/carolina /Document#: [id number] [facility]
[2017-03-23] MEDS: HYDROCODONE/APAP (10/325) TAB PO PRN ×2 (12:50→20:26)
[2017-03-23 14:00] VITALS: BP 144/91; RESP 19
[2017-03-23] MEDS: POTASSIUM CHLORIDE (SR) 20 MEQ TAB PO SCH (15:08)
--- NOTE | 2017-03-23 17:07 | PN ---
Date/Time of Note Date/Time of Note DATE: 03/23/17 TIME: 17:02 Assessment/Plan VTE Prophylaxis VTE Prophylaxis Intervention: ambulation Lines/Catheters Central line still needed: No Urinary Cath still in place: No Assessment/Plan Problems: (1) Hypokalemia Status: Acute Comment: replace with 40 mEQ x 2 days and recheck. (2) Aftercare following surgery of the musculoskeletal system Status: Acute Comment: Will begin PT/OT per ARU (3) Status post lumbar laminectomy Onset Date: ~ 03/19/2017 Status: Resolved Comment: Per Satnam Subjective 24 Hr Interval Summary Free Text/Dictation Patient with multiple complaints including concern about foot drop and chronic pain. Exam/Review of Systems Vital Signs Vitals Vital Signs Date Time Temp Pulse Resp B/P Pulse Ox O2 Delivery O2 Flow Rate FiO2 03/23/17 14:00 98.4 100 19 144/91 96 03/22/17 14:35 Room Air Intake and Output 03/22/17 03/22/17 03/23/17 15:00 23:00 07:00 Intake Total 1150 ml Output Total 1000 ml Balance 150 ml Exam Constitutional: alert, oriented Respiratory: clear to auscultation Cardiovascular: regular rate and rhythm Musculoskeletal: other (right foot in boot) Neurological: other (right foot drop ) Results Labs reviewed Result Diagram: 03/23/17 0757 03/23/17 0757 Results 24 hrs Laboratory Tests Test 03/23/17 07:25 03/23/17 07:57 Urine Color YELLOW Urine Clarity CLEAR Urine pH 6.0 Urine Specific [place] 1.013 Urine Ketones NEGATIVE Urine Nitrite NEGATIVE Urine Bilirubin NEGATIVE Urine Urobilinogen NEGATIVE Urine Leukocyte Esterase NEGATIVE Urine Hemoglobin NEGATIVE Urine Glucose NEGATIVE Urine Total Protein NEGATIVE White Blood Count 7.6 # Red Blood Count 3.95 L Hemoglobin 12.0 L Hematocrit 36.2 L Mean Corpuscular Volume 91.6 Mean Corpuscular Hemoglobin 30.4 Mean Corpuscular Hemoglobin Concent 33.1 Red Cell Distribution Width 12.0 Platelet Count 168 # Mean Platelet Volume 10.4 Neutrophils % 63.1 Lymphocytes % 22.8 Monocytes % 7.0 Eosinophils % 5.9 Basophils % 0.5 Nucleated Red Blood Cells % 0.0 Neutrophils # 4.8 Lymphocytes # 1.7 Monocytes # 0.5 Eosinophils # 0.5 Basophils # 0.0 Nucleated Red Blood Cells # 0.0 Sodium Level 137 Potassium Level 3.4 L Chloride Level 99 Carbon Dioxide Level 31 Anion Gap 10 Blood Urea Nitrogen 15 Creatinine 1.04 Glucose Level 144 # Calcium Level 8.9 Total Bilirubin 0.3 Direct Bilirubin 0.00 Indirect Bilirubin 0.3 Aspartate Amino Transf (AST/SGOT) 24 Alanine Aminotransferase (ALT/SGPT) 40 Alkaline Phosphatase 67 Total Protein 7.2 Albumin 3.7 Globulin 3.50 H Albumin/Globulin Ratio 1.05 Medications Medications Current Medications Bisacodyl (Dulcolax Supp) 10 mg DAILY PRN [place] CONSTIPATION; Start 03/22/17 at 16 :00 Al Hydrox/Mg Hydrox/Simethicone (Mag-Al Plus) 15 ml Q6H PRN PO CONSTIPATION/ DYSPEPSIA; Start 03/22/17 at 16:00 Acetaminophen (Tylenol Tab) 650 mg Q4H PRN PO GANT OR TEMP GREATER THAN 101.3F; Start 03/22/17 at 16:00 Cyclobenzaprine HCl (Flexeril) 10 mg TID PRN PO MUSCLE SPASMS Last administered on 03/23/17 08:45; Admin Dose 10 MG; Start 03/22/17 at 16:00 Chlorpromazine (Thorazine) 25 mg Q8H PRN PO HICCUPS; Start 03/22/17 at 16:00 Docusate Sodium (Colace) 100 mg BID PO Last administered on 03/23/17 08:45; Admin Dose 100 MG; Start 03/22/17 at 21:00 Phenol (Cepastat Lozenge) 1 lozenge PRN PRN [place] SORE THROAT; Start 03/22/17 at 16:30 Magnesium Hydroxide (Milk Of Mag) 30 ml BID PRN PO CONSTIPATION Last administered on 03/23/17 12:50; Admin Dose 30 ML; Start 03/22/17 at 16:30 Lactulose (Enulose) 20 gm DAILY PRN PO CONSTIPATION; Start 03/22/17 at 16:30 Chlorpromazine (Thorazine) 25 mg Q8 PO Last administered on 03/23/17 15:04; Admin Dose 25 MG; Start 03/22/17 at 22:00; Stop 03/24/17 at 21:59 Senna (Senokot) 2 tab HS PO ; Start 03/23/17 at 21:00 Acetaminophen/ Hydrocodone Bitart ([place] (10325)) 1 tab Q4H PRN PO MODERATE PAIN LEVEL 4-6; Start 03/23/17 at 12:30 Acetaminophen/ Hydrocodone Bitart ([place] (10325)) 2 tab Q4H PRN PO SEVERE PAIN LEVEL 7-10 Last administered on 03/23/17 12:50; Admin Dose 2 TAB; Start at 12:30 Potassium Chloride (Klor-Con 20) 40 meq DAILY PO Last administered on 15:08; Admin Dose 40 MEQ; Start 03/23/17 at 15:00; Stop 03/25/17 at 15:00 JATINDER MONK MD Mar 23, 2017 17:07
[2017-03-23 19:35] VITALS: BP 116/57; RESP 20
[2017-03-23] MEDS: LACTULOSE 30ML CUP PO PRN (20:25)
[2017-03-23] MEDS: SENNA TAB PO SCH (20:25)
[2017-03-24] MEDS: CYCLOBENZAPRINE 10 MG TAB PO PRN (00:47)
[2017-03-24 02:50] VITALS: BP 122/74; PULSE 89; RESP 18
[2017-03-24] MEDS: HYDROCODONE/APAP (10/325) TAB PO PRN ×3 (03:53→20:55)
[2017-03-24] MEDS: CHLORPROMAZINE 25 MG TAB PO SCH ×3 (06:00→14:00)
[2017-03-24 07:00] VITALS: BP 100/56; RESP 18
[2017-03-24] MEDS: DOCUSATE SODIUM 100 MG CAP PO SCH ×2 (09:06→20:43)
[2017-03-24] MEDS: LACTULOSE 30ML CUP PO PRN (09:06)
[2017-03-24] MEDS: POTASSIUM CHLORIDE (SR) 20 MEQ TAB PO SCH (09:06)
[2017-03-24 20:00] VITALS: BP 141/77; RESP 18
[2017-03-24] MEDS: SENNA TAB PO SCH (20:43)
--- NOTE | 2017-03-24 23:43 | PN ---
Date/Time of Note Date/Time of Note DATE: 03/24/17 Assessment/Plan VTE Prophylaxis VTE Prophylaxis Intervention: ambulation Lines/Catheters Central line still needed: No Urinary Cath still in place: No Assessment/Plan Problems: (1) Aftercare following surgery of the musculoskeletal system Status: Acute Comment: PER ARU and Ortho teams. (2) Hypokalemia Status: Acute Comment: receiving potassium replacement. potassium level to be checked in am. (3) Status post lumbar laminectomy Onset Date: ~ 03/19/2017 Status: Resolved Subjective 24 Hr Interval Summary Free Text/Dictation No new issues Exam/Review of Systems Vital Signs Vitals Vital Signs Date Time Temp Pulse Resp B/P Pulse Ox O2 Delivery O2 Flow Rate FiO2 03/24/17 20:00 99.4 98 18 141/77 94 03/24/17 02:50 Room Air Intake and Output 03/23/17 03/23/17 03/24/17 15:00 23:00 07:00 Intake Total 900 ml 300 ml Output Total 400 ml Balance 900 ml -100 ml Exam Patient asleep Results Result Diagram: 03/23/17 0757 03/23/17 0757 Medications Medications Current Medications Bisacodyl (Dulcolax Supp) 10 mg DAILY PRN [place] CONSTIPATION; Start 03/22/17 at 16 :00 Al Hydrox/Mg Hydrox/Simethicone (Mag-Al Plus) 15 ml Q6H PRN PO CONSTIPATION/ DYSPEPSIA Last administered on 03/23/17 20:25; Admin Dose 15 ML; Start at 16:00 Acetaminophen (Tylenol Tab) 650 mg Q4H PRN PO GANT OR TEMP GREATER THAN 101.3F; Start 03/22/17 at 16:00 Cyclobenzaprine HCl (Flexeril) 10 mg TID PRN PO MUSCLE SPASMS Last administered on 03/24/17 00:47; Admin Dose 10 MG; Start 03/22/17 at 16:00 Chlorpromazine (Thorazine) 25 mg Q8H PRN PO HICCUPS Last administered on 20:28; Admin Dose 25 MG; Start 03/22/17 at 16:00 Docusate Sodium (Colace) 100 mg BID PO Last administered on 03/24/17 20:43; Admin Dose 100 MG; Start 03/22/17 at 21:00 Phenol (Cepastat Lozenge) 1 lozenge PRN PRN [place] SORE THROAT; Start 03/22/17 at 16:30 Magnesium Hydroxide (Milk Of Mag) 30 ml BID PRN PO CONSTIPATION Last administered on 03/23/17 12:50; Admin Dose 30 ML; Start 03/22/17 at 16:30 Lactulose (Enulose) 20 gm DAILY PRN PO CONSTIPATION Last administered on 09:06; Admin Dose 20 GM; Start 03/22/17 at 16:30 Senna (Senokot) 2 tab HS PO Last administered on 03/24/17 20:43; Admin Dose 2 TAB; Start 03/23/17 at 21:00 Acetaminophen/ Hydrocodone Bitart ([place] (10/325)) 1 tab Q4H PRN PO MODERATE PAIN LEVEL 4-6 Last administered on 03/23/17 20:26; Admin Dose 1 TAB; Start at 12:30 Acetaminophen/ Hydrocodone Bitart ([place] (10/325)) 2 tab Q4H PRN PO SEVERE PAIN LEVEL 7-10 Last administered on 03/24/17 20:55; Admin Dose 2 TAB; Start at 12:30 Potassium Chloride (Klor-Con 20) 40 meq DAILY PO Last administered on 09:06; Admin Dose 40 MEQ; Start 03/23/17 at 15:00; Stop 03/25/17 at 15:00 JATINDER MONK MD Mar 24, 2017 23:43
[2017-03-25 02:31] VITALS: BP 134/65; RESP 18
[2017-03-25] MEDS: HYDROCODONE/APAP (10/325) TAB PO PRN ×4 (03:18→19:39)
[2017-03-25 07:30] VITALS: BP 129/85; RESP 18
--- NOTE | 2017-03-25 09:35 | CONS ---
Date/Time of Note Date/Time of Note DATE: 03/25/17 TIME: 09:34 Consult Date/Type/Reason Admit Date/Time Mar 22, 2017 at 14:38 Initial Consult Date Objective Vital Signs Date Time Temp Pulse Resp B/P Pulse Ox O2 Delivery O2 Flow Rate FiO2 03/25/17 07:30 98.1 74 18 129/85 95 03/24/17 02:50 Room Air Intake and Output 03/24/17 03/24/17 03/25/17 15:00 23:00 07:00 Intake Total 1200 ml 280 ml Output Total 600 ml 200 ml Balance 600 ml 80 ml INTERDISCIPLINARY TEAM CONFERENCE BOWEL- Cont BLADDER-Cont SKIN- intact OT- DRESSING-min/mod BATHING-min/mod TOILETING-min/mod PT- BED MOBILITY-min TRANSFERS-min/mod AMBULATION-min 80 A/P- Interdisciplinary team conference held today. Please see interdisciplinary sheet. Working toward d.c. on 04/01 with post discharge follow up of physical therapy, occupational therapy. Results/Medications Result Diagram: 03/23/17 0757 03/23/17 0757 Medications Current Medications Bisacodyl (Dulcolax Supp) 10 mg DAILY PRN [place] CONSTIPATION; Start 03/22/17 at 16 :00 Al Hydrox/Mg Hydrox/Simethicone (Mag-Al Plus) 15 ml Q6H PRN PO CONSTIPATION/ DYSPEPSIA Last administered on 03/23/17 20:25; Admin Dose 15 ML; Start at 16:00 Acetaminophen (Tylenol Tab) 650 mg Q4H PRN PO GANT OR TEMP GREATER THAN 101.3F; Start 03/22/17 at 16:00 Cyclobenzaprine HCl (Flexeril) 10 mg TID PRN PO MUSCLE SPASMS Last administered on 03/24/17 00:47; Admin Dose 10 MG; Start 03/22/17 at 16:00 Chlorpromazine (Thorazine) 25 mg Q8H PRN PO HICCUPS Last administered on 20:28; Admin Dose 25 MG; Start 03/22/17 at 16:00 Docusate Sodium (Colace) 100 mg BID PO Last administered on 03/24/17 20:43; Admin Dose 100 MG; Start 03/22/17 at 21:00 Phenol (Cepastat Lozenge) 1 lozenge PRN PRN [place] SORE THROAT; Start 03/22/17 at 16:30 Magnesium Hydroxide (Milk Of Mag) 30 ml BID PRN PO CONSTIPATION Last administered on 03/23/17 12:50; Admin Dose 30 ML; Start 03/22/17 at 16:30 Lactulose (Enulose) 20 gm DAILY PRN PO CONSTIPATION Last administered on 09:06; Admin Dose 20 GM; Start 03/22/17 at 16:30 Senna (Senokot) 2 tab HS PO Last administered on 03/24/17 20:43; Admin Dose 2 TAB; Start 03/23/17 at 21:00 Acetaminophen/ Hydrocodone Bitart ([place] (10/325)) 1 tab Q4H PRN PO MODERATE PAIN LEVEL 4-6 Last administered on 03/23/17 20:26; Admin Dose 1 TAB; Start at 12:30 Acetaminophen/ Hydrocodone Bitart ([place] (10/325)) 2 tab Q4H PRN PO SEVERE PAIN LEVEL 7-10 Last administered on 03/25/17 03:18; Admin Dose 2 TAB; Start at 12:30 Potassium Chloride (Klor-Con 20) 40 meq DAILY PO Last administered on 09:06; Admin Dose 40 MEQ; Start 03/23/17 at 15:00; Stop 03/25/17 at 15:00 AUNDREA HERNANDEZ MD Mar 25, 2017 09:35 AUNDREA HERNANDEZ MD Mar 25, 2017 09:35
[2017-03-25] MEDS: CYCLOBENZAPRINE 10 MG TAB PO PRN (09:47)
[2017-03-25] MEDS: POTASSIUM CHLORIDE (SR) 20 MEQ TAB PO SCH (09:48)
[2017-03-25] MEDS: DOCUSATE SODIUM 100 MG CAP PO SCH ×2 (09:48→20:24)
[2017-03-25 11:30] LABS: CALCIUM 9.3 mg/dl (8.4-10.2); CREATININE 0.99 mg/dl (0.61-1.24); POTASSIUM 3.9 mmol/L (3.5-5.1)
--- NOTE | 2017-03-25 17:12 | PN ---
Date/Time of Note Date/Time of Note DATE: 03/25/17 TIME: 17:10 Assessment/Plan VTE Prophylaxis VTE Prophylaxis Intervention: ambulation Lines/Catheters Urinary Cath still in place: No Subjective 24 Hr Interval Summary Free Text/Dictation post decompressive lami with bilat leg issues, foot drop left. now having some cramps in rt thigh. working well w rehab. elevated bs this am, to follow, no gu or gi complaints alert, vs ok lungs clear, hr ok, abd soft mild bilat left more than rt quad weakness, mild foot drop l Exam/Review of Systems Vital Signs Vitals Vital Signs Date Time Temp Pulse Resp B/P Pulse Ox O2 Delivery O2 Flow Rate FiO2 03/25/17 07:30 98.1 74 18 129/85 95 03/24/17 02:50 Room Air Intake and Output 03/24/17 03/24/17 03/25/17 15:00 23:00 07:00 Intake Total 1200 ml 280 ml Output Total 600 ml 200 ml Balance 600 ml 80 ml Results Result Diagram: 03/23/17 0757 03/25/17 1039 Results 24 hrs Laboratory Tests Test 03/25/17 10:39 Sodium Level 136 Potassium Level 3.9 Chloride Level 97 Carbon Dioxide Level 31 Anion Gap 12 Blood Urea Nitrogen 16 Creatinine 0.99 Glucose Level 209 Calcium Level 9.3 Medications Medications Current Medications Bisacodyl (Dulcolax Supp) 10 mg DAILY PRN [place] CONSTIPATION; Start 03/22/17 at 16 :00 Al Hydrox/Mg Hydrox/Simethicone (Mag-Al Plus) 15 ml Q6H PRN PO CONSTIPATION/ DYSPEPSIA Last administered on 03/23/17 20:25; Admin Dose 15 ML; Start at 16:00 Acetaminophen (Tylenol Tab) 650 mg Q4H PRN PO GANT OR TEMP GREATER THAN 101.3F; Start 03/22/17 at 16:00 Cyclobenzaprine HCl (Flexeril) 10 mg TID PRN PO MUSCLE SPASMS Last administered on 03/25/17 09:47; Admin Dose 10 MG; Start 03/22/17 at 16:00 Chlorpromazine (Thorazine) 25 mg Q8H PRN PO HICCUPS Last administered on 20:28; Admin Dose 25 MG; Start 03/22/17 at 16:00 Docusate Sodium (Colace) 100 mg BID PO Last administered on 03/25/17 09:48; Admin Dose 100 MG; Start 03/22/17 at 21:00 Phenol (Cepastat Lozenge) 1 lozenge PRN PRN [place] SORE THROAT; Start 03/22/17 at 16:30 Magnesium Hydroxide (Milk Of Mag) 30 ml BID PRN PO CONSTIPATION Last administered on 03/23/17 12:50; Admin Dose 30 ML; Start 03/22/17 at 16:30 Lactulose (Enulose) 20 gm DAILY PRN PO CONSTIPATION Last administered on 09:06; Admin Dose 20 GM; Start 03/22/17 at 16:30 Senna (Senokot) 2 tab HS PO Last administered on 03/24/17 20:43; Admin Dose 2 TAB; Start 03/23/17 at 21:00 Acetaminophen/ Hydrocodone Bitart ([place] (10/325)) 1 tab Q4H PRN PO MODERATE PAIN LEVEL 4-6 Last administered on 03/25/17 13:22; Admin Dose 1 TAB; Start at 12:30 Acetaminophen/ Hydrocodone Bitart ([place] (10/325)) 2 tab Q4H PRN PO SEVERE PAIN LEVEL 7-10 Last administered on 03/25/17 09:47; Admin Dose 2 TAB; Start at 12:30 RAUL RAMOS MD Mar 25, 2017 17:12
[2017-03-25 20:00] VITALS: BP 144/87; RESP 18
[2017-03-25] MEDS: SENNA TAB PO SCH (20:24)
[2017-03-26] MEDS: CYCLOBENZAPRINE 10 MG TAB PO PRN (01:56)
[2017-03-26] MEDS: HYDROCODONE/APAP (10/325) TAB PO PRN ×3 (01:58→14:11)
[2017-03-26 02:00] VITALS: BP 136/78; RESP 18
[2017-03-26 07:05] VITALS: BP 146/84; PULSE 69; RESP 18
[2017-03-26] MEDS: DOCUSATE SODIUM 100 MG CAP PO SCH ×2 (08:08→20:39)
[2017-03-26 08:57] VITALS: BP 146/84; RESP 18
--- NOTE | 2017-03-26 12:25 | CONS ---
Date/Time of Note Date/Time of Note DATE: 03/26/17 TIME: 12:23 Consult Date/Type/Reason Admit Date/Time Mar 22, 2017 at 14:38 Subjective reports some difficulty sleeping , and still with pain, although improved Objective Vital Signs Date Time Temp Pulse Resp B/P Pulse Ox O2 Delivery O2 Flow Rate FiO2 03/26/17 08:57 98.3 69 18 146/84 95 03/26/17 07:05 Room Air Intake and Output 03/25/17 03/25/17 03/26/17 15:00 23:00 07:00 Intake Total 640 ml 400 ml Output Total 500 ml Balance 640 ml -100 ml Results/Medications Result Diagram: 03/23/17 0757 03/25/17 1039 Medications Current Medications Bisacodyl (Dulcolax Supp) 10 mg DAILY PRN [place] CONSTIPATION; Start 03/22/17 at 16 :00 Al Hydrox/Mg Hydrox/Simethicone (Mag-Al Plus) 15 ml Q6H PRN PO CONSTIPATION/ DYSPEPSIA Last administered on 03/23/17 20:25; Admin Dose 15 ML; Start at 16:00 Acetaminophen (Tylenol Tab) 650 mg Q4H PRN PO GANT OR TEMP GREATER THAN 101.3F; Start 03/22/17 at 16:00 Cyclobenzaprine HCl (Flexeril) 10 mg TID PRN PO MUSCLE SPASMS Last administered on 03/26/17 01:56; Admin Dose 10 MG; Start 03/22/17 at 16:00 Chlorpromazine (Thorazine) 25 mg Q8H PRN PO HICCUPS Last administered on 20:28; Admin Dose 25 MG; Start 03/22/17 at 16:00 Docusate Sodium (Colace) 100 mg BID PO Last administered on 03/26/17 08:08; Admin Dose 100 MG; Start 03/22/17 at 21:00 Phenol (Cepastat Lozenge) 1 lozenge PRN PRN [place] SORE THROAT; Start 03/22/17 at 16:30 Magnesium Hydroxide (Milk Of Mag) 30 ml BID PRN PO CONSTIPATION Last administered on 03/23/17 12:50; Admin Dose 30 ML; Start 03/22/17 at 16:30 Lactulose (Enulose) 20 gm DAILY PRN PO CONSTIPATION Last administered on 09:06; Admin Dose 20 GM; Start 03/22/17 at 16:30 Senna (Senokot) 2 tab HS PO Last administered on 03/24/17 20:43; Admin Dose 2 TAB; Start 03/23/17 at 21:00 Acetaminophen/ Hydrocodone Bitart ([place] (10/325)) 1 tab Q4H PRN PO MODERATE PAIN LEVEL 4-6 Last administered on 03/26/17 08:09; Admin Dose 1 TAB; Start at 12:30 Acetaminophen/ Hydrocodone Bitart ([place] (10/325)) 2 tab Q4H PRN PO SEVERE PAIN LEVEL 7-10 Last administered on 03/26/17 01:58; Admin Dose 2 TAB; Start at 12:30 Baclofen (Lioresal) 10 mg HS PO ; Start 03/26/17 at 21:00 Assessment/Plan Additional Assessment/Plan Rehab- Lumbar sacral stenosis with radiculopathy and foot drop. Status post- decompressive laminectomy. Progressing with rehab Acute pain syndrome- add baclofen at night Constipation- results with bowel program Obesity. AUNDREA HERNANDEZ MD Mar 26, 2017 12:25
--- NOTE | 2017-03-26 13:51 | PN ---
Date/Time of Note Date/Time of Note DATE: 03/26/17 TIME: 13:48 Assessment/Plan VTE Prophylaxis VTE Prophylaxis Intervention: ambulation Lines/Catheters Central line still needed: No Urinary Cath still in place: No Assessment/Plan Problems: (1) Status post lumbar laminectomy Onset Date: ~ 03/19/2017 Status: Resolved Comment: Right foot drop sequela after surgery (2) Hypokalemia Status: Resolved Comment: Potassium levels optimal after replacement (3) Aftercare following surgery of the musculoskeletal system Status: Acute Comment: PT/OT per ARU and Dr. Hay. Subjective 24 Hr Interval Summary Free Text/Dictation Patient disappointed with outcome of surgery. Frustrated strength in right foot decreased. Exam/Review of Systems Vital Signs Vitals Vital Signs Date Time Temp Pulse Resp B/P Pulse Ox O2 Delivery O2 Flow Rate FiO2 03/26/17 08:57 98.3 69 18 146/84 95 03/26/17 07:05 Room Air Intake and Output 03/25/17 03/25/17 03/26/17 15:00 23:00 07:00 Intake Total 640 ml 400 ml Output Total 500 ml Balance 640 ml -100 ml Exam Constitutional: alert, oriented Neck: supple Respiratory: clear to auscultation Cardiovascular: regular rate and rhythm Gastrointestinal: soft Musculoskeletal: nl extremities to inspection Neurological: other (Decrease strength Right foot) Results Result Diagram: 03/23/17 0757 03/25/17 1039 Medications Medications Current Medications Bisacodyl (Dulcolax Supp) 10 mg DAILY PRN [place] CONSTIPATION; Start 03/22/17 at 16 :00 Al Hydrox/Mg Hydrox/Simethicone (Mag-Al Plus) 15 ml Q6H PRN PO CONSTIPATION/ DYSPEPSIA Last administered on 03/23/17 20:25; Admin Dose 15 ML; Start at 16:00 Acetaminophen (Tylenol Tab) 650 mg Q4H PRN PO GANT OR TEMP GREATER THAN 101.3F; Start 03/22/17 at 16:00 Cyclobenzaprine HCl (Flexeril) 10 mg TID PRN PO MUSCLE SPASMS Last administered on 03/26/17 01:56; Admin Dose 10 MG; Start 03/22/17 at 16:00 Chlorpromazine (Thorazine) 25 mg Q8H PRN PO HICCUPS Last administered on 20:28; Admin Dose 25 MG; Start 03/22/17 at 16:00 Docusate Sodium (Colace) 100 mg BID PO Last administered on 03/26/17 08:08; Admin Dose 100 MG; Start 03/22/17 at 21:00 Phenol (Cepastat Lozenge) 1 lozenge PRN PRN [place] SORE THROAT; Start 03/22/17 at 16:30 Magnesium Hydroxide (Milk Of Mag) 30 ml BID PRN PO CONSTIPATION Last administered on 03/23/17 12:50; Admin Dose 30 ML; Start 03/22/17 at 16:30 Lactulose (Enulose) 20 gm DAILY PRN PO CONSTIPATION Last administered on 09:06; Admin Dose 20 GM; Start 03/22/17 at 16:30 Senna (Senokot) 2 tab HS PO Last administered on 03/24/17 20:43; Admin Dose 2 TAB; Start 03/23/17 at 21:00 Acetaminophen/ Hydrocodone Bitart ([place] (10/325)) 1 tab Q4H PRN PO MODERATE PAIN LEVEL 4-6 Last administered on 03/26/17 08:09; Admin Dose 1 TAB; Start at 12:30 Acetaminophen/ Hydrocodone Bitart ([place] (10/325)) 2 tab Q4H PRN PO SEVERE PAIN LEVEL 7-10 Last administered on 03/26/17 01:58; Admin Dose 2 TAB; Start at 12:30 Baclofen (Lioresal) 10 mg HS PO ; Start 03/26/17 at 21:00 JATINDER MONK MD Mar 26, 2017 13:51
[2017-03-26 20:00] VITALS: BP 155/96; RESP 18
[2017-03-26] MEDS: BACLOFEN 10 MG TAB PO SCH (20:39)
[2017-03-26] MEDS: SENNA TAB PO SCH (20:39)
[2017-03-27] MEDS: ZOLPIDEM 5 MG TAB PO PRN ×2 (00:29→20:31)
[2017-03-27] MEDS: HYDROCODONE/APAP (10/325) TAB PO PRN ×4 (00:29→20:31)
[2017-03-27 02:00] VITALS: BP 142/80; RESP 18
[2017-03-27 08:00] VITALS: BP 139/84; RESP 18
[2017-03-27] MEDS: DOCUSATE SODIUM 100 MG CAP PO SCH ×2 (08:44→20:31)
[2017-03-27 10:47] VITALS: BP 139/84; PULSE 71; RESP 18
--- NOTE | 2017-03-27 11:58 | CONS ---
Date/Time of Note Date/Time of Note DATE: 03/27/17 TIME: 11:57 Consult Date/Type/Reason Admit Date/Time Mar 22, 2017 at 14:38 Subjective reports difficultly sleeping Objective pulm-cta sba ambulation Vital Signs Date Time Temp Pulse Resp B/P Pulse Ox O2 Delivery O2 Flow Rate FiO2 03/27/17 10:47 98.4 71 18 139/84 Room Air 03/27/17 08:00 96 Intake and Output 03/26/17 03/26/17 03/27/17 15:00 23:00 07:00 Intake Total 1440 ml Output Total 1501 ml Balance -61 ml Results/Medications Result Diagram: 03/23/17 0757 03/25/17 1039 Medications Current Medications Bisacodyl (Dulcolax Supp) 10 mg DAILY PRN [place] CONSTIPATION; Start 03/22/17 at 16 :00 Al Hydrox/Mg Hydrox/Simethicone (Mag-Al Plus) 15 ml Q6H PRN PO CONSTIPATION/ DYSPEPSIA Last administered on 03/23/17 20:25; Admin Dose 15 ML; Start at 16:00 Acetaminophen (Tylenol Tab) 650 mg Q4H PRN PO GANT OR TEMP GREATER THAN 101.3F; Start 03/22/17 at 16:00 Cyclobenzaprine HCl (Flexeril) 10 mg TID PRN PO MUSCLE SPASMS Last administered on 03/26/17 01:56; Admin Dose 10 MG; Start 03/22/17 at 16:00 Chlorpromazine (Thorazine) 25 mg Q8H PRN PO HICCUPS Last administered on 20:28; Admin Dose 25 MG; Start 03/22/17 at 16:00 Docusate Sodium (Colace) 100 mg BID PO Last administered on 03/27/17 08:44; Admin Dose 100 MG; Start 03/22/17 at 21:00 Phenol (Cepastat Lozenge) 1 lozenge PRN PRN [place] SORE THROAT; Start 03/22/17 at 16:30 Magnesium Hydroxide (Milk Of Mag) 30 ml BID PRN PO CONSTIPATION Last administered on 03/23/17 12:50; Admin Dose 30 ML; Start 03/22/17 at 16:30 Lactulose (Enulose) 20 gm DAILY PRN PO CONSTIPATION Last administered on 09:06; Admin Dose 20 GM; Start 03/22/17 at 16:30 Senna (Senokot) 2 tab HS PO Last administered on 03/26/17 20:39; Admin Dose 2 TAB; Start 03/23/17 at 21:00 Acetaminophen/ Hydrocodone Bitart ([place] (10/325)) 1 tab Q4H PRN PO MODERATE PAIN LEVEL 4-6 Last administered on 03/27/17 08:44; Admin Dose 1 TAB; Start at 12:30 Acetaminophen/ Hydrocodone Bitart ([place] (10/325)) 2 tab Q4H PRN PO SEVERE PAIN LEVEL 7-10 Last administered on 03/26/17 01:58; Admin Dose 2 TAB; Start at 12:30 Baclofen (Lioresal) 10 mg HS PO Last administered on 03/26/17 20:39; Admin Dose 10 MG; Start 03/26/17 at 21:00 Assessment/Plan Additional Assessment/Plan Rehab- Lumbar sacral stenosis with radiculopathy and foot drop. Status post- decompressive laminectomy. Continue rehab Acute pain syndrome- continue current meds Constipation- results with bowel program Obesity. AUNDREA HERNANDEZ MD Mar 27, 2017 11:58
--- NOTE | 2017-03-27 18:01 | PN ---
Date/Time of Note Date/Time of Note DATE: 03/27/17 TIME: 18:00 Assessment/Plan VTE Prophylaxis VTE Prophylaxis Intervention: ambulation Lines/Catheters Urinary Cath still in place: No Subjective 24 Hr Interval Summary Free Text/Dictation just left to go for stat mri ordered by dr chavez, complaining of leg and ankle pain Exam/Review of Systems Vital Signs Vitals Vital Signs Date Time Temp Pulse Resp B/P Pulse Ox O2 Delivery O2 Flow Rate FiO2 03/27/17 10:47 98.4 71 18 139/84 Room Air 03/27/17 08:00 96 Intake and Output 03/26/17 03/26/17 03/27/17 15:00 23:00 07:00 Intake Total 1440 ml Output Total 1501 ml Balance -61 ml Results Result Diagram: 03/23/17 0757 03/25/17 1039 Medications Medications Current Medications Bisacodyl (Dulcolax Supp) 10 mg DAILY PRN [place] CONSTIPATION; Start 03/22/17 at 16 :00 Al Hydrox/Mg Hydrox/Simethicone (Mag-Al Plus) 15 ml Q6H PRN PO CONSTIPATION/ DYSPEPSIA Last administered on 03/23/17 20:25; Admin Dose 15 ML; Start at 16:00 Acetaminophen (Tylenol Tab) 650 mg Q4H PRN PO GANT OR TEMP GREATER THAN 101.3F; Start 03/22/17 at 16:00 Cyclobenzaprine HCl (Flexeril) 10 mg TID PRN PO MUSCLE SPASMS Last administered on 03/26/17 01:56; Admin Dose 10 MG; Start 03/22/17 at 16:00 Chlorpromazine (Thorazine) 25 mg Q8H PRN PO HICCUPS Last administered on 20:28; Admin Dose 25 MG; Start 03/22/17 at 16:00 Docusate Sodium (Colace) 100 mg BID PO Last administered on 03/27/17 08:44; Admin Dose 100 MG; Start 03/22/17 at 21:00 Phenol (Cepastat Lozenge) 1 lozenge PRN PRN [place] SORE THROAT; Start 03/22/17 at 16:30 Magnesium Hydroxide (Milk Of Mag) 30 ml BID PRN PO CONSTIPATION Last administered on 03/23/17 12:50; Admin Dose 30 ML; Start 03/22/17 at 16:30 Lactulose (Enulose) 20 gm DAILY PRN PO CONSTIPATION Last administered on 09:06; Admin Dose 20 GM; Start 03/22/17 at 16:30 Senna (Senokot) 2 tab HS PO Last administered on 03/26/17 20:39; Admin Dose 2 TAB; Start 03/23/17 at 21:00 Acetaminophen/ Hydrocodone Bitart ([place] (10/325)) 1 tab Q4H PRN PO MODERATE PAIN LEVEL 4-6 Last administered on 03/27/17 16:14; Admin Dose 1 TAB; Start at 12:30 Acetaminophen/ Hydrocodone Bitart ([place] (10/325)) 2 tab Q4H PRN PO SEVERE PAIN LEVEL 7-10 Last administered on 03/26/17 01:58; Admin Dose 2 TAB; Start at 12:30 Baclofen (Lioresal) 10 mg HS PO Last administered on 03/26/17 20:39; Admin Dose 10 MG; Start 03/26/17 at 21:00 RAUL RAMOS MD Mar 27, 2017 18:01
--- NOTE | 2017-03-27 19:57 | RADRPT ---
PROCEDURE: MRI LUMBAR SPINE WITH AND WITHOUT CONTRAST CLINICAL INDICATION: Low back pain and right foot drop status post central decompressive laminecto my with right knee pain TECHNIQUE: An MRI of the lumbar spine was performed on a 3.0 Stephanie MRI scanner utilizing the follo wing sequences: Sagittal T1 weighted, sagittal and dual echo axial T2 weighted, and sagittal T2 weig hted with fat saturation. Following intravenous administration of 10 cc of Magnevist contrast sagit yousuf and axial T1-weighted sequences are performed with fat saturation in the sagittal plane. No com plications ensued. COMPARISON: Lumbar spine series 03/19/2017 FINDINGS: There is a normal lordosis of the lumbar spine. The patient is status post bilateral L2 through L5 , L4-5 and L5-S1 levels. The intervertebral discs are remarkable for mild intervertebral disc space height loss at T12-L1 with disc desiccation noted diffusely at the L1-2 through L5-S1 levels. Severe disc space height loss is noted at the L2-3, and L5-S1 levels with moderate disc space height loss at L3-4 and L4-5. The conus medullaris terminates normally at the L1-2 level . The visualized preve rtebral and paravertebral tissues demonstrate postsurgical changes in the posterior paravertebral mu sculature at the L2-L5 levels. Following contrast administration, no abnormal enhancement of the jay tebral bodies are noted. Mild enhancement is noted of the posterior longitudinal ligament at the T12 -L1 level and with in the surgical bed posterior subcutaneous tissues at L2-3 through L5-S1. Mild en hancement of several caudal nerve roots in the cauda equina are noted at the L4 and L5 levels and correlate with arachnoiditis. The specific axial levels are as follows: T12 - L1: The intervertebral disc demonstrates mild decreased disc space height and the presence of a 6 mm in AP by 1.6 cm superior inferior dimension hyperintense extradural density most compatible with a hemorrhagic central disc extrusion. Extrusion cephalad to the mid T12 vertebral body is prese nt. AP canal dimension is 8 mm. This results in mild central canal stenosis, bilateral subarticular recess stenosis and no significant neural foraminal stenosis. L1 - L2: Mild disc desiccation is present with disc space height loss. Mild bilateral facet arthrop athy and left facet effusion is present. The central canal, subarticular recess and right neural for amen are patent. Mild to moderate left neural foraminal stenosis is present. L2 - L3: Degenerative endplate and severe disc space height loss is present. The central canal, sub articular recess, and neural foramen are patent bilaterally. The patient is status post laminectomy changes at this level. L3 - L4: Moderate disc space height loss degenerative endplate changes are noted. Mild bilateral fa cet arthropathy is present. Laminectomy changes are again noted. The central canal, subarticular rec ess are patent. Mild bilateral neural foraminal stenosis is present. L4 - L5: Moderate disc space height loss and disc desiccation is present. A 4 mm central disc extru gordo is present superimposed on a 3 mm mild to moderate broad-based bulge . Moderate bilateral facet arthropathy is present. Decompressive laminectomy changes are again noted at this level. The cent ral canal is patent. Mild bilateral subarticular recess stenosis and neural foraminal stenosis is pr esent. L5 - S1: Severe disc space height loss, degenerative endplate changes and disc desiccation is noted . A mild 3 mm broad-based bulge is present. AP canal dimension is 9 mm. Moderate bilateral facet art hropathy is present. Mild central canal stenosis, bilateral subarticular recess stenosis and severe bilateral neural foraminal stenosis is present. IMPRESSION: 1. No evidence for acute fractures, traumatic subluxations, spondylolisthesis or spondylolysis. 2. T12-L1 6 mm AP by 1.6 cm in superior inferior dimensions hyperintense extradural density most co mpatible with a hemorrhagic central disc extrusion with cephalad extension to the mid T12 vertebral body. 3. Status post recent L2-L5 laminectomy changes as noted above. 4. Mild enhancement of the cauda equina at the L4 and L5 levels and correlate with potential arachn oiditis. 5. 4 mm central disc extrusion superimposed on mild to moderate broad-based bulge at L4-5. 6. Mild broad-based bulge at the L5-S1 level with associated mild central canal stenosis. 7. Multilevel neural foraminal stenosis at the L1-2, L3-4 through L5-S1 levels with severe bilatera l neural foraminal stenosis at L5-S1. A call report was made to Pacheco Connolly at 03/27/2017 7:49:32 PM following the completion of the examination by the undersigned. RPTAT: HDC .Aurea Granados MD, MD Date Time Electronically viewed and signed by .Aurea Granados MD, MD on 03/27/2017 19:57 .C/
[2017-03-27 20:12] VITALS: BP 125/74; RESP 18
[2017-03-27] MEDS: SENNA TAB PO SCH (20:31)
[2017-03-27] MEDS: BACLOFEN 10 MG TAB PO SCH (20:31)
[2017-03-28 02:00] VITALS: BP 127/72; RESP 18
[2017-03-28] MEDS: CYCLOBENZAPRINE 10 MG TAB PO PRN ×2 (02:44→09:29)
[2017-03-28] MEDS: HYDROCODONE/APAP (10/325) TAB PO PRN ×4 (04:19→20:17)
[2017-03-28 07:30] VITALS: BP 137/89; RESP 18
--- NOTE | 2017-03-28 08:26 | PN ---
Date/Time of Note Date/Time of Note DATE: 03/28/17 TIME: 08:20 Assessment/Plan Lines/Catheters Silva in Place (from Nrs): No Assessment/Plan Assessment/Plan the patient is s/p lumbar decompression. intraop nerve signals were significantly down at the start of the case with improvement at the end. patient has increased weakness in the right leg as compared to pre-op. MRI ordered and reviewed: There is a normal lordosis of the lumbar spine. The patient is status post bilateral L2 through L5 , L4-5 and L5-S1 levels. The intervertebral discs are remarkable for mild intervertebral disc space height loss at T12-L1 with disc desiccation noted diffusely at the L1-2 through L5-S1 levels. Severe disc space height loss is noted at the L2-3, and L5-S1 levels with moderate disc space height loss at L3-4 and L4-5. The conus medullaris terminates normally at the L1-2 level . The visualized prevertebral and paravertebral tissues demonstrate postsurgical changes in the posterior paravertebral musculature at the L2-L5 levels. Following contrast administration, no abnormal enhancement of the vertebral bodies are noted. Mild enhancement is noted of the posterior longitudinal ligament at the T12-L1 level and with in the surgical bed posterior subcutaneous tissues at L2-3 through L5-S1. Mild enhancement of several caudal nerve roots in the cauda equina are noted at the L4 and L5 levels and correlate with arachnoiditis. The specific axial levels are as follows: T12 - L1: The intervertebral disc demonstrates mild decreased disc space height and the presence of a 6 mm in AP by 1.6 cm superior inferior dimension hyperintense extradural density most compatible with a hemorrhagic central disc extrusion. Extrusion cephalad to the mid T12 vertebral body is present. AP canal dimension is 8 mm. This results in mild central canal stenosis, bilateral subarticular recess stenosis and no significant neural foraminal stenosis. L1 - L2: Mild disc desiccation is present with disc space height loss. Mild bilateral facet arthropathy and left facet effusion is present. The central canal, subarticular recess and right neural foramen are patent. Mild to moderate left neural foraminal stenosis is present. L2 - L3: Degenerative endplate and severe disc space height loss is present. The central canal, subarticular recess, and neural foramen are patent bilaterally. The patient is status post laminectomy changes at this level. L3 - L4: Moderate disc space height loss degenerative endplate changes are noted. Mild bilateral facet arthropathy is present. Laminectomy changes are again noted. The central canal, subarticular recess are patent. Mild bilateral neural foraminal stenosis is present. L4 - L5: Moderate disc space height loss and disc desiccation is present. A 4 mm central disc extrusion is present superimposed on a 3 mm mild to moderate broad-based bulge . Moderate bilateral facet arthropathy is present. Decompressive laminectomy changes are again noted at this level. The central canal is patent. Mild bilateral subarticular recess stenosis and neural foraminal stenosis is present. L5 - S1: Severe disc space height loss, degenerative endplate changes and disc desiccation is noted. A mild 3 mm broad-based bulge is present. AP canal dimension is 9 mm. Moderate bilateral facet arthropathy is present. Mild central canal stenosis, bilateral subarticular recess stenosis and severe bilateral neural foraminal stenosis is present. I personally reviewed the MRI. I do not think that the hemorrhagic hernation in T-spine is causing the right foot drop as it is more to the left. I do not believe that the patient had a stroke to explain the leg weakness. The right side nerve signals returned to normal at the end of the case. I do not see significant residual stenosis to explain the right leg weakness. I discussed with patient that this could be a neuropraxia. This could also be due to a peripheral peroneal nerve issue. That said, the patient has noticed mild improvement in the last week. I do not see any reason for additional surgery at this time. I discussed with the patient that I would like to observe this and obtain nerve tests in 3-4 weeks. He will use the right AFO. Subjective 24 Hr Interval Summary c/o mild back pain. reports right leg weakness - slightly improved Exam/Review of Systems Vital Signs Vitals Vital Signs Date Time Temp Pulse Resp B/P Pulse Ox O2 Delivery O2 Flow Rate FiO2 03/28/17 02:00 98.7 85 18 127/72 95 03/27/17 10:47 Room Air Intake and Output 03/27/17 03/27/17 03/28/17 14:59 22:59 06:59 Intake Total 800 ml 400 ml 860 ml Output Total 400 ml Balance 800 ml 400 ml 460 ml Exam Free Text/Dictation atrophy left quad and left leg - same as pre-op. 4/5 strength left EHL and TA - same as pre-op right leg diminished sensation medial and lateral calf and dorsum of foot; tinel over fibular head, 2/5 ta and ehl. 5-/5 gastroc Results Result Diagram: 03/25/17 1039 KENNEDI HANKS MD Mar 28, 2017 08:26
[2017-03-28] MEDS: DOCUSATE SODIUM 100 MG CAP PO SCH ×2 (09:29→20:12)
[2017-03-28] MEDS: LACTULOSE 30ML CUP PO PRN (09:30)
--- NOTE | 2017-03-28 11:04 | CONS ---
Date/Time of Note Date/Time of Note DATE: 03/28/17 TIME: 10:57 Consult Date/Type/Reason Admit Date/Time Mar 22, 2017 at 14:38 Subjective Patient angry regarding his bed, he wants a firmer mattress. Various hospital bed options reviewed with patient, and he is agreeable to try a different bed. P.T. reports patient went to gym on his own, and was lying on mat using exercise ball. It was explained to patient that he should not be in the gym unsupervised, and should not utilize equipment without supervision. He would prefer to sleep on the gym mat, but it was explained to him that this was not an option. Objective sba ambulation with FWW. Vital Signs Date Time Temp Pulse Resp B/P Pulse Ox O2 Delivery O2 Flow Rate FiO2 03/28/17 07:30 98.5 74 18 137/89 96 03/27/17 10:47 Room Air Intake and Output 03/27/17 03/27/17 03/28/17 15:00 23:00 07:00 Intake Total 800 ml 400 ml 860 ml Output Total 400 ml Balance 800 ml 400 ml 460 ml Results/Medications Result Diagram: 03/25/17 1039 Medications Current Medications Bisacodyl (Dulcolax Supp) 10 mg DAILY PRN [place] CONSTIPATION; Start 03/22/17 at 16 :00 Al Hydrox/Mg Hydrox/Simethicone (Mag-Al Plus) 15 ml Q6H PRN PO CONSTIPATION/ DYSPEPSIA Last administered on 03/23/17 20:25; Admin Dose 15 ML; Start at 16:00 Acetaminophen (Tylenol Tab) 650 mg Q4H PRN PO GANT OR TEMP GREATER THAN 101.3F; Start 03/22/17 at 16:00 Cyclobenzaprine HCl (Flexeril) 10 mg TID PRN PO MUSCLE SPASMS Last administered on 03/28/17 09:29; Admin Dose 10 MG; Start 03/22/17 at 16:00 Chlorpromazine (Thorazine) 25 mg Q8H PRN PO HICCUPS Last administered on 20:28; Admin Dose 25 MG; Start 03/22/17 at 16:00 Docusate Sodium (Colace) 100 mg BID PO Last administered on 03/28/17 09:29; Admin Dose 100 MG; Start 03/22/17 at 21:00 Phenol (Cepastat Lozenge) 1 lozenge PRN PRN [place] SORE THROAT; Start 03/22/17 at 16:30 Magnesium Hydroxide (Milk Of Mag) 30 ml BID PRN PO CONSTIPATION Last administered on 03/23/17 12:50; Admin Dose 30 ML; Start 03/22/17 at 16:30 Lactulose (Enulose) 20 gm DAILY PRN PO CONSTIPATION Last administered on 09:30; Admin Dose 20 GM; Start 03/22/17 at 16:30 Senna (Senokot) 2 tab HS PO Last administered on 03/27/17 20:31; Admin Dose 2 TAB; Start 03/23/17 at 21:00 Acetaminophen/ Hydrocodone Bitart ([place] (10/325)) 1 tab Q4H PRN PO MODERATE PAIN LEVEL 4-6 Last administered on 03/28/17 09:29; Admin Dose 1 TAB; Start at 12:30 Acetaminophen/ Hydrocodone Bitart ([place] (10/325)) 2 tab Q4H PRN PO SEVERE PAIN LEVEL 7-10 Last administered on 03/26/17 01:58; Admin Dose 2 TAB; Start at 12:30 Baclofen (Lioresal) 10 mg HS PO Last administered on 03/27/17 20:31; Admin Dose 10 MG; Start 03/26/17 at 21:00 Assessment/Plan Additional Assessment/Plan Rehab- Lumbar sacral stenosis with radiculopathy and foot drop. Status post- decompressive laminectomy. Continue rehab activities, and increase as tolerated. Will try different hospital bed Acute pain syndrome- continue current meds Constipation- continue bowel program Obesity. Compliance- staff concerned regarding patient compliance with regards to need for supervision while in gym. Will continue to review safety aspects of use of gym. AUNDREA HERNANDEZ MD Mar 28, 2017 11:04
[2017-03-28 14:00] VITALS: BP 136/80; RESP 18
[2017-03-28 20:00] VITALS: BP 127/79; RESP 20
[2017-03-28] MEDS: BACLOFEN 10 MG TAB PO SCH (20:10)
[2017-03-28] MEDS: SENNA TAB PO SCH (20:12)
[2017-03-29] MEDS: ZOLPIDEM 5 MG TAB PO PRN (00:08)
[2017-03-29 02:49] VITALS: BP 133/79; RESP 19
[2017-03-29] MEDS: HYDROCODONE/APAP (10/325) TAB PO PRN ×4 (03:48→22:01)
[2017-03-29 07:00] VITALS: BP 124/87; RESP 18
[2017-03-29] MEDS: DOCUSATE SODIUM 100 MG CAP PO SCH ×2 (08:37→20:14)
--- NOTE | 2017-03-29 13:33 | CONS ---
Date/Time of Note Date/Time of Note DATE: 03/29/17 TIME: 13:30 Consult Date/Type/Reason Admit Date/Time Mar 22, 2017 at 14:38 Subjective Patient reports he slept better with the leg elavators. He is still upset regarding his phone not working well. Objective seen up ambulating independently with FWW. Vital Signs Date Time Temp Pulse Resp B/P Pulse Ox O2 Delivery O2 Flow Rate FiO2 03/29/17 07:00 97.6 76 18 124/87 95 03/27/17 10:47 Room Air Intake and Output 03/28/17 03/28/17 03/29/17 15:00 23:00 07:00 Intake Total 640 ml Output Total 550 ml Balance 640 ml -550 ml Results/Medications Result Diagram: 03/25/17 1039 Medications Current Medications Bisacodyl (Dulcolax Supp) 10 mg DAILY PRN [place] CONSTIPATION; Start 03/22/17 at 16 :00 Al Hydrox/Mg Hydrox/Simethicone (Mag-Al Plus) 15 ml Q6H PRN PO CONSTIPATION/ DYSPEPSIA Last administered on 03/23/17 20:25; Admin Dose 15 ML; Start at 16:00 Acetaminophen (Tylenol Tab) 650 mg Q4H PRN PO GANT OR TEMP GREATER THAN 101.3F; Start 03/22/17 at 16:00 Cyclobenzaprine HCl (Flexeril) 10 mg TID PRN PO MUSCLE SPASMS Last administered on 03/28/17 09:29; Admin Dose 10 MG; Start 03/22/17 at 16:00 Chlorpromazine (Thorazine) 25 mg Q8H PRN PO HICCUPS Last administered on 20:28; Admin Dose 25 MG; Start 03/22/17 at 16:00 Docusate Sodium (Colace) 100 mg BID PO Last administered on 03/29/17 08:37; Admin Dose 100 MG; Start 03/22/17 at 21:00 Phenol (Cepastat Lozenge) 1 lozenge PRN PRN [place] SORE THROAT; Start 03/22/17 at 16:30 Magnesium Hydroxide (Milk Of Mag) 30 ml BID PRN PO CONSTIPATION Last administered on 03/23/17 12:50; Admin Dose 30 ML; Start 03/22/17 at 16:30 Lactulose (Enulose) 20 gm DAILY PRN PO CONSTIPATION Last administered on 09:06; Admin Dose 20 GM; Start 03/22/17 at 16:30 Senna (Senokot) 2 tab HS PO Last administered on 03/27/17 20:31; Admin Dose 2 TAB; Start 03/23/17 at 21:00 Acetaminophen/ Hydrocodone Bitart ([place] (10/325)) 1 tab Q4H PRN PO MODERATE PAIN LEVEL 4-6 Last administered on 03/29/17 08:42; Admin Dose 1 TAB; Start at 12:30 Acetaminophen/ Hydrocodone Bitart ([place] (10/325)) 2 tab Q4H PRN PO SEVERE PAIN LEVEL 7-10 Last administered on 03/26/17 01:58; Admin Dose 2 TAB; Start at 12:30 Baclofen (Lioresal) 10 mg HS PO Last administered on 03/28/17 20:10; Admin Dose 10 MG; Start 03/26/17 at 21:00 Assessment/Plan Additional Assessment/Plan Rehab- Lumbar sacral stenosis with radiculopathy and foot drop. Status post- decompressive laminectomy. Continue rehab treatment plan Acute pain syndrome- continue current meds Constipation- continue bowel program Obesity. AUNDREA HERNANDEZ MD Mar 29, 2017 13:33
--- NOTE | 2017-03-29 14:54 | PN ---
Date/Time of Note Date/Time of Note DATE: 03/29/17 TIME: 14:52 Assessment/Plan VTE Prophylaxis VTE Prophylaxis Intervention: ambulation Lines/Catheters Urinary Cath still in place: No Subjective 24 Hr Interval Summary Free Text/Dictation perhaps less pain and jacob able to participate with p.t. rt foot drop persists vs ok, lungs clear, heart rate nl, abd soft, gu ok to continue with rehab program Neurologic: focal-weakness Exam/Review of Systems Vital Signs Vitals Vital Signs Date Time Temp Pulse Resp B/P Pulse Ox O2 Delivery O2 Flow Rate FiO2 03/29/17 07:00 97.6 76 18 124/87 95 03/27/17 10:47 Room Air Intake and Output 03/28/17 03/28/17 03/29/17 15:00 23:00 07:00 Intake Total 640 ml Output Total 550 ml Balance 640 ml -550 ml Results Result Diagram: 03/25/17 1039 Medications Medications Current Medications Bisacodyl (Dulcolax Supp) 10 mg DAILY PRN [place] CONSTIPATION; Start 03/22/17 at 16 :00 Al Hydrox/Mg Hydrox/Simethicone (Mag-Al Plus) 15 ml Q6H PRN PO CONSTIPATION/ DYSPEPSIA Last administered on 03/23/17 20:25; Admin Dose 15 ML; Start at 16:00 Acetaminophen (Tylenol Tab) 650 mg Q4H PRN PO GANT OR TEMP GREATER THAN 101.3F; Start 03/22/17 at 16:00 Cyclobenzaprine HCl (Flexeril) 10 mg TID PRN PO MUSCLE SPASMS Last administered on 03/28/17 09:29; Admin Dose 10 MG; Start 03/22/17 at 16:00 Chlorpromazine (Thorazine) 25 mg Q8H PRN PO HICCUPS Last administered on 20:28; Admin Dose 25 MG; Start 03/22/17 at 16:00 Docusate Sodium (Colace) 100 mg BID PO Last administered on 03/29/17 08:37; Admin Dose 100 MG; Start 03/22/17 at 21:00 Phenol (Cepastat Lozenge) 1 lozenge PRN PRN [place] SORE THROAT; Start 03/22/17 at 16:30 Magnesium Hydroxide (Milk Of Mag) 30 ml BID PRN PO CONSTIPATION Last administered on 03/23/17 12:50; Admin Dose 30 ML; Start 03/22/17 at 16:30 Lactulose (Enulose) 20 gm DAILY PRN PO CONSTIPATION Last administered on 09:06; Admin Dose 20 GM; Start 03/22/17 at 16:30 Senna (Senokot) 2 tab HS PO Last administered on 03/27/17 20:31; Admin Dose 2 TAB; Start 03/23/17 at 21:00 Acetaminophen/ Hydrocodone Bitart ([place] (10/325)) 1 tab Q4H PRN PO MODERATE PAIN LEVEL 4-6 Last administered on 03/29/17 08:42; Admin Dose 1 TAB; Start at 12:30 Acetaminophen/ Hydrocodone Bitart ([place] (10/325)) 2 tab Q4H PRN PO SEVERE PAIN LEVEL 7-10 Last administered on 03/26/17 01:58; Admin Dose 2 TAB; Start at 12:30 Baclofen (Lioresal) 10 mg HS PO Last administered on 03/28/17 20:10; Admin Dose 10 MG; Start 03/26/17 at 21:00 RAUL RAMOS MD Mar 29, 2017 14:54
[2017-03-29 20:00] VITALS: BP 134/78; RESP 18
[2017-03-29] MEDS: BACLOFEN 10 MG TAB PO SCH (20:13)
[2017-03-29] MEDS: SENNA TAB PO SCH (20:14)
[2017-03-30 02:00] VITALS: BP 127/80; RESP 18
[2017-03-30] MEDS: HYDROCODONE/APAP (10/325) TAB PO PRN ×4 (04:01→20:25)
[2017-03-30 07:30] VITALS: BP 130/86; RESP 18
[2017-03-30] MEDS: DOCUSATE SODIUM 100 MG CAP PO SCH ×2 (08:03→20:21)
--- NOTE | 2017-03-30 09:48 | CONS ---
Date/Time of Note Date/Time of Note DATE: 03/30/17 TIME: 09:48 Consult Date/Type/Reason Admit Date/Time Mar 22, 2017 at 14:38 Subjective patient reports he slept better Objective ambulating independently with the use of a FWW Vital Signs Date Time Temp Pulse Resp B/P Pulse Ox O2 Delivery O2 Flow Rate FiO2 03/30/17 07:30 97.9 63 18 130/86 95 03/27/17 10:47 Room Air Intake and Output 03/29/17 03/29/17 03/30/17 15:00 23:00 07:00 Intake Total 1400 ml 1150 ml Output Total 1001 ml 300 ml Balance 399 ml 850 ml Results/Medications Medications Current Medications Bisacodyl (Dulcolax Supp) 10 mg DAILY PRN [place] CONSTIPATION; Start 03/22/17 at 16 :00 Al Hydrox/Mg Hydrox/Simethicone (Mag-Al Plus) 15 ml Q6H PRN PO CONSTIPATION/ DYSPEPSIA Last administered on 03/23/17 20:25; Admin Dose 15 ML; Start at 16:00 Acetaminophen (Tylenol Tab) 650 mg Q4H PRN PO GANT OR TEMP GREATER THAN 101.3F; Start 03/22/17 at 16:00 Cyclobenzaprine HCl (Flexeril) 10 mg TID PRN PO MUSCLE SPASMS Last administered on 03/28/17 09:29; Admin Dose 10 MG; Start 03/22/17 at 16:00 Chlorpromazine (Thorazine) 25 mg Q8H PRN PO HICCUPS Last administered on 20:28; Admin Dose 25 MG; Start 03/22/17 at 16:00 Docusate Sodium (Colace) 100 mg BID PO Last administered on 03/29/17 08:37; Admin Dose 100 MG; Start 03/22/17 at 21:00 Phenol (Cepastat Lozenge) 1 lozenge PRN PRN [place] SORE THROAT; Start 03/22/17 at 16:30 Magnesium Hydroxide (Milk Of Mag) 30 ml BID PRN PO CONSTIPATION Last administered on 03/23/17 12:50; Admin Dose 30 ML; Start 03/22/17 at 16:30 Lactulose (Enulose) 20 gm DAILY PRN PO CONSTIPATION Last administered on 09:06; Admin Dose 20 GM; Start 03/22/17 at 16:30 Senna (Senokot) 2 tab HS PO Last administered on 03/27/17 20:31; Admin Dose 2 TAB; Start 03/23/17 at 21:00 Acetaminophen/ Hydrocodone Bitart ([place] (10/325)) 1 tab Q4H PRN PO MODERATE PAIN LEVEL 4-6 Last administered on 03/29/17 08:42; Admin Dose 1 TAB; Start at 12:30 Acetaminophen/ Hydrocodone Bitart ([place] (10/325)) 2 tab Q4H PRN PO SEVERE PAIN LEVEL 7-10 Last administered on 03/30/17 04:01; Admin Dose 2 TAB; Start at 12:30 Baclofen (Lioresal) 10 mg HS PO Last administered on 03/29/17 20:13; Admin Dose 10 MG; Start 03/26/17 at 21:00 Assessment/Plan Additional Assessment/Plan Rehab- Lumbar sacral stenosis with radiculopathy and foot drop. Status post- decompressive laminectomy. Continue rehab treatment program. DC planning in progress Acute pain syndrome- continue current meds Constipation- continue bowel program Obesity. AUNDREA HERNANDEZ MD Mar 30, 2017 09:48
[2017-03-30] MEDS ORDERED: ONDANSETRON (ODT) 4 MG TAB ODT PRN (11:00)
--- NOTE | 2017-03-30 12:50 | PN ---
Date/Time of Note Date/Time of Note DATE: 03/30/17 TIME: 12:49 Assessment/Plan VTE Prophylaxis VTE Prophylaxis Intervention: ambulation Lines/Catheters Urinary Cath still in place: No Assessment/Plan Problems: (1) Status post lumbar laminectomy Onset Date: ~ 03/19/2017 Status: Resolved Comment: Progressing with physical therapy and acute rehabilitation unit. He is actually making more progress now and we have expectations of good surgical outcome. Subjective 24 Hr Interval Summary Free Text/Dictation He reports after advice from physical therapy and the nursing staff in the last 2 days he has adjusted his walking down to as routine and he is feeling better and requiring less medication. Respiratory: no complaints Cardiovascular: no complaints Gastrointestinal: no complaints Exam/Review of Systems Vital Signs Vitals Vital Signs Date Time Temp Pulse Resp B/P Pulse Ox O2 Delivery O2 Flow Rate FiO2 03/30/17 07:30 97.9 63 18 130/86 95 03/27/17 10:47 Room Air Intake and Output 03/29/17 03/29/17 03/30/17 15:00 23:00 07:00 Intake Total 1400 ml 1150 ml Output Total 1001 ml 300 ml Balance 399 ml 850 ml Exam Constitutional: alert, oriented Respiratory: clear to auscultation, normal air movement Cardiovascular: nl pulses, regular rate and rhythm Medications Medications Current Medications Bisacodyl (Dulcolax Supp) 10 mg DAILY PRN [place] CONSTIPATION; Start 03/22/17 at 16 :00 Al Hydrox/Mg Hydrox/Simethicone (Mag-Al Plus) 15 ml Q6H PRN PO CONSTIPATION/ DYSPEPSIA Last administered on 03/23/17 20:25; Admin Dose 15 ML; Start at 16:00 Acetaminophen (Tylenol Tab) 650 mg Q4H PRN PO GANT OR TEMP GREATER THAN 101.3F; Start 03/22/17 at 16:00 Cyclobenzaprine HCl (Flexeril) 10 mg TID PRN PO MUSCLE SPASMS Last administered on 03/28/17 09:29; Admin Dose 10 MG; Start 03/22/17 at 16:00 Chlorpromazine (Thorazine) 25 mg Q8H PRN PO HICCUPS Last administered on 20:28; Admin Dose 25 MG; Start 03/22/17 at 16:00 Docusate Sodium (Colace) 100 mg BID PO Last administered on 03/29/17 08:37; Admin Dose 100 MG; Start 03/22/17 at 21:00 Phenol (Cepastat Lozenge) 1 lozenge PRN PRN [place] SORE THROAT; Start 03/22/17 at 16:30 Magnesium Hydroxide (Milk Of Mag) 30 ml BID PRN PO CONSTIPATION Last administered on 03/23/17 12:50; Admin Dose 30 ML; Start 03/22/17 at 16:30 Lactulose (Enulose) 20 gm DAILY PRN PO CONSTIPATION Last administered on 09:06; Admin Dose 20 GM; Start 03/22/17 at 16:30 Senna (Senokot) 2 tab HS PO Last administered on 03/27/17 20:31; Admin Dose 2 TAB; Start 03/23/17 at 21:00 Acetaminophen/ Hydrocodone Bitart ([place] (10/325)) 1 tab Q4H PRN PO MODERATE PAIN LEVEL 4-6 Last administered on 03/29/17 08:42; Admin Dose 1 TAB; Start at 12:30 Acetaminophen/ Hydrocodone Bitart ([place] (10/325)) 2 tab Q4H PRN PO SEVERE PAIN LEVEL 7-10 Last administered on 03/30/17 04:01; Admin Dose 2 TAB; Start at 12:30 Baclofen (Lioresal) 10 mg HS PO Last administered on 03/29/17 20:13; Admin Dose 10 MG; Start 03/26/17 at 21:00 Ondansetron HCl (Zofran Odt) 4 mg Q6H PRN ODT NAUSEA Last administered on 11:09; Admin Dose 4 MG; Start 03/30/17 at 11:00 CECI PARRISH MD Mar 30, 2017 12:50
[2017-03-30 14:00] VITALS: BP 137/76; RESP 20
[2017-03-30 14:00] LABS: BASOPHIL # 0.1 10^3/ul (0.0-0.1); BASOPHILS % 0.8 % (0.0-2.0); EOSINOPHILS # 0.5 10^3/ul (0.0-0.5); EOSINOPHILS % 6.4 % (0.0-7.0); HEMATOCRIT 38.2 % (42.0-52.0); HEMOGLOBIN 13.2 g/dl (14.0-18.0); LYMPHOCYTES % 24.8 % (15.0-51.0); MEAN CORPUSCULAR HEMOGLOBIN 31.3 pg (29.0-33.0); MEAN CORPUSCULAR HGB CONC 34.6 g/dl (32.0-37.0); MEAN CORPUSCULAR VOLUME 90.5 fl (82.0-101.0); MEAN PLATELET VOLUME 9.6 fl (7.4-10.4); MONOCYTE # 0.5 10^3/ul (0.3-0.9); MONOCYTES % 6.2 % (0.0-11.0); NEUTROPHIL # 4.8 10^3/ul (1.6-7.5); NEUTROPHILS % 61.2 % (39.0-77.0); PLATELET COUNT 290 10^3/UL (140-415); RED BLOOD COUNT 4.22 10^6/ul (4.70-6.10); RED CELL DISTRIBUTION WIDTH 11.8 % (11.5-14.5); WHITE BLOOD COUNT 7.9 10^3/ul (4.8-10.8)
[2017-03-30 14:22] LABS: CREATININE 1.03 mg/dl (0.61-1.24); POTASSIUM 3.9 mmol/L (3.5-5.1)
[2017-03-30 19:49] VITALS: BP 128/87; RESP 18
[2017-03-30] MEDS: SENNA TAB PO SCH (20:24)
[2017-03-30] MEDS: BACLOFEN 10 MG TAB PO SCH (20:25)
[2017-03-31] MEDS: HYDROCODONE/APAP (10/325) TAB PO PRN ×3 (01:46→21:39)
[2017-03-31 02:00] VITALS: BP 124/82; RESP 18
[2017-03-31 07:00] VITALS: BP 125/76; RESP 18
[2017-03-31] MEDS: DOCUSATE SODIUM 100 MG CAP PO SCH ×2 (08:19→20:18)
[2017-03-31] MEDS: DICLOFENAC SODIUM 1% GEL 100 GM TUBE TP SCH (11:34)
[2017-03-31 20:00] VITALS: BP 138/85; PULSE 86; RESP 18
[2017-03-31 20:15] VITALS: BP 138/85; RESP 18
[2017-03-31] MEDS: LACTULOSE 30ML CUP PO PRN (20:18)
[2017-03-31] MEDS: BACLOFEN 10 MG TAB PO SCH (20:18)
[2017-03-31] MEDS: SENNA TAB PO SCH (20:19)
[2017-03-31] MEDS: ZOLPIDEM 5 MG TAB PO PRN (21:32)
[2017-04-01 03:08] VITALS: BP 122/80; RESP 18
[2017-04-01 07:30] VITALS: BP 108/68; RESP 20
[2017-04-01] MEDS: DOCUSATE SODIUM 100 MG CAP PO SCH ×2 (09:00→09:10)
[2017-04-01] MEDS: DICLOFENAC SODIUM 1% GEL 100 GM TUBE TP SCH (09:04)
[2017-04-01] MEDS: HYDROCODONE/APAP (10/325) TAB PO PRN (09:11)
--- NOTE | 2017-04-01 11:42 | QN ---
Documentation Comment patient seen today at acute rehab facility continues to have right leg weakness, reports tingling in the leg now has right AFO likely 2/2 peroneal nerve will continue to observe, discussed prognosis with patient SNF vs. D/C home with home health per KENNEDI Mike MD Apr 01, 2017 11:42
--- NOTE | 2017-04-02 10:03 | DS ---
Date/Time of Note Date/Time of Note DATE: 04/02/17 TIME: 09:57 Discharge Summary Admission/Discharge Info Admit Date/Time Mar 22, 2017 at 14:38 Discharge Date/Time Apr 01, 2017 at 14:11 Discharge Diagnosis 1. Lumbar sacral stenosis with radiculopathy and foot drop. Status post-decompressive laminectomy. 2. Acute pain syndrome. 3. Obesity. 4. Improvements in self-care and mobility. Patient Condition: Good Hospital Course Patient was admitted for comprehensive interdisciplinary acute rehabilitation. Patient made steady functional gains and improved from a mod level to a Modified Independent level for self care and mobility, including ambulating over 150 feet with the use of a front wheeled walker and AFO. Patient at times ambulated M.I. without AFO, however pateitn encouraged to use AFO for improved safety. Overall patient's pain improved significantly during course of saty. He was able to be transitioned from IV meds to oral medications successfully. He did report difficulty sleeping due to the hospital mattress, however was able to have improved sleep with the use of leg elevators. On admission he had complained of constipation, which improved with bowel program.. During the course of stay he had some improvement in his dorsiflexion, but was encouraged to use the AFO until the dorsiflexion improved further. Patient is being discharged home with recommendations for home health PT and OT follow up. DME recommendations: FWW; [facility]; Shower Chair Patient will follow up with PMD and Dr. Hay upon OR. Primary Care Provider Care Physician AUNDREA Haney MD Apr 02, 2017 10:03
== END 2017-04-01 14:11 | disposition home health service (06) | DRG 560 ==
LOC: VRC 11:46 → UNDOADMIN 11:46 → VRC 14:38
PROVIDERS: ADMIT Physical Medicine & Rehabilitation; ATTEND Internal Medicine
PROC: F07Z9FZ Gait Training/Functional Ambulation Treatment using Assistive, Adaptive, Supportive or Protective Equipment (ICD-10-PCS; principal; 2017-03-22)
PROC: F07Z5FZ Bed Mobility Treatment using Assistive, Adaptive, Supportive or Protective Equipment (ICD-10-PCS; 2017-03-22)
PROC: F07Z8FZ Transfer Training Treatment using Assistive, Adaptive, Supportive or Protective Equipment (ICD-10-PCS; 2017-03-22)
PROC: F08Z2FZ Grooming/Personal Hygiene Treatment using Assistive, Adaptive, Supportive or Protective Equipment (ICD-10-PCS; 2017-03-22)
PROC: F08Z0FZ Bathing/Showering Techniques Treatment using Assistive, Adaptive, Supportive or Protective Equipment (ICD-10-PCS; 2017-03-22)
PROC: F08Z1FZ Dressing Techniques Treatment using Assistive, Adaptive, Supportive or Protective Equipment (ICD-10-PCS; 2017-03-22)
DX: Z47.89 Encounter for other orthopedic aftercare (principal); J98.11 Atelectasis; I10 Essential (primary) hypertension; Z98.890 Other specified postprocedural states; E11.9 Type 2 diabetes mellitus without complications; F17.210 Nicotine dependence, cigarettes, uncomplicated; G89.18 Other acute postprocedural pain; K59.00 Constipation, unspecified; E66.9 Obesity, unspecified; Z68.30 Body mass index [BMI] 30.0-30.9, adult; E87.6 Hypokalemia; M21.371 Foot drop, right foot
CPT/HCPCS: 72158; 80048; 80053; 81003; 85025; 87081; 87086; 97110; 97112; 97116; 97150; 97163; 97167; 97530; 97535; L1932; L2820